=== PATIENT | female | born 1970 | race Caucasian/White ===

== ENCOUNTER 2018-11-06 07:35 | Day surgery (SDC) | payer BC ==
[~2018-11-06] VITALS: Ht 167.6 cm; Wt 65.8 kg
[~2018-11-06 07:35] MED LIST: CALTCHW4 PO; CRAN400C PO; LIDOCAINE 2% INJ 100 MG/5 ML SDV (FOR ANES.) As Ordered ONE; MULT1TAB10 PO
[2018-11-06] MEDS ORDERED: PROPOFOL 200 MG/20 ML VIAL As Ordered ONE ×2 (07:45→09:01)
[2018-11-06] MEDS ORDERED: NS 1,000 ML IV ONE (08:45)
--- NOTE | 2018-11-06 09:22 | ROOR ---
Patient Name: Emely Glasgow Procedure Date: 11/06/2018 8:52 AM Date of : 1970 Age: 48 Room: [facility] Gender: Female Note Status: Finalized Procedure: Colonoscopy Indications: Screening for colorectal malignant neoplasm Providers: Matty CHAVEZ MD Referring MD: Fabienne MIRANDA MD Requesting Provider: Medicines: Monitored Anesthesia Care Complications: No immediate complications. Procedure: Pre-Anesthesia Assessment: - The heart rate, respiratory rate, oxygen saturations, blood pressure, adequacy of pulmonary ventilation, and response to care were monitored throughout the procedure. The Colonoscope was introduced through the anus and advanced to the terminal ileum, with identification of the appendiceal orifice and IC valve. The colonoscopy was performed without difficulty. The patient tolerated the procedure well. The quality of the bowel preparation was adequate to identify polyps. Findings: The perianal and digital rectal examinations were normal. Three carpet-like polyps were found in the hepatic flexure, ascending colon and cecum. The polyps were 6 to 8 mm in size. These polyps were removed with a piecemeal technique using a cold snare. Resection and retrieval were complete. The exam was otherwise without abnormality on direct and retroflexion views. Impression: - Three 6 to 8 mm polyps at the hepatic flexure, in the ascending colon and in the cecum, removed piecemeal using a cold snare. Resected and retrieved. - The examination was otherwise normal on direct and retroflexion views. Recommendation: - Repeat colonoscopy in 3 years for surveillance. - Telephone endoscopist for pathology results in 2 weeks. Matty Chavez MD Matty CHAVEZ MD 11/06/2018 9:22:20 AM This report has been signed electronically. Number of Addenda: 0 Note Initiated On: 11/06/2018 8:52 AM Estimated Blood Loss: Estimated blood loss: none.
[2018-11-06 09:40] VITALS: BP 94/53
== END 2018-11-06 09:59 | disposition home or self-care (01) ==
LOC: M OPP 07:35
PROVIDERS: ATTEND Internal Medicine Gastroenterology
DX: Z12.11 Encounter for screening for malignant neoplasm of colon (principal); K63.5 Polyp of colon; R01.1 Cardiac murmur, unspecified

== ENCOUNTER 2018-12-10 07:23 | Day surgery (SDC) | payer BC ==
[~2018-12-10] VITALS: Ht 167.6 cm; Wt 65.8 kg
[~2018-12-10 07:23] MED LIST changes: -LIDOCAINE 2% INJ 100 MG/5 ML SDV (FOR ANES.) As Ordered ONE; +LR 1,000 ML IV SCH
[2018-12-10] MEDS ORDERED: ONDANSETRON 4MG/2ML VIAL (J2405) As Ordered ONE (08:05)
[2018-12-10] MEDS ORDERED: LIDOCAINE 2% INJ 100 MG/5 ML SDV (FOR ANES.) As Ordered ONE (08:05)
[2018-12-10] MEDS ORDERED: MIDAZOLAM INJ 2 MG/2 ML VIAL (J2250) As Ordered ONE (08:05)
[2018-12-10] MEDS ORDERED: dexameTHASONE 4 MG/ML 1ML VIAL (J1100) As Ordered ONE (08:05)
[2018-12-10] MEDS ORDERED: PROPOFOL 200 MG/20 ML VIAL As Ordered ONE (08:05)
[2018-12-10] MEDS ORDERED: fentaNYL 100 MCG/2 ML INJECTION (J3010) As Ordered ONE (08:05)
[2018-12-10] MEDS ORDERED: ePHEDrine SULFATE 25 MG/5 ML(5MG/ML) SYRINGE As Ordered ONE ×2 (09:07→09:31)
[2018-12-10] MEDS ORDERED: fentaNYL 100 MCG/2 ML INJECTION (J3010) IV PRN (10:15)
[2018-12-10] MEDS ORDERED: PERCOCET 5MG/325MG TAB PO PRN (10:15)
[2018-12-10] MEDS ORDERED: MEPERIDINE INJ 25 MG/ML VIAL (J2175) IV PRN (10:15)
[2018-12-10] MEDS ORDERED: METOCLOPRAMIDE INJ 10MG/2ML VIAL (J2765) IV PRN (10:15)
[2018-12-10] MEDS ORDERED: LR 1,000 ML IV SCH ×2 (10:15)
[2018-12-10] MEDS ORDERED: IBUPROFEN 600 MG TAB PO PRN (10:15)
[2018-12-10] MEDS ORDERED: ONDANSETRON 4MG/2ML VIAL (J2405) IV PRN (10:15)
[2018-12-10] MEDS ORDERED: METOCLOPRAMIDE INJ 10MG/2ML VIAL (J2765) As Ordered ONE (12:24)
[2018-12-10 12:35] VITALS: BP 111/59
--- NOTE | 2018-12-10 19:24 | RO ---
DATE OF PROCEDURE: 12/10/2018 PREOPERATIVE DIAGNOSES: Irregular cycles, cervical polyp, abnormal ultrasound. POSTOPERATIVE DIAGNOSES: Nabothian cyst ruptured with our work. The endometrial cavity was actually obliterated by her ablation. I think that is why her sono looked interesting. OPERATIVE PROCEDURE: Fractional dilation and curettage (D and C) hysteroscopy. SURGEON: Gloria Palencia MD CLINICAL RESEARCH ANALYST: ANESTHESIA: Laryngeal mask airway (LMA). BRIEF DESCRIPTION OF PROCEDURE AND FINDINGS: Emely was brought to the operating room where sufficient LMA anesthesia was given and she was prepped and she was prepped, draped and positioned in the usual sterile fashion. The bladder was emptied and the cervix was grasped with a single tooth tenaculum. The cervix would accessible from below should this be needed in the future. Endocervical curettage was aggressively carried out. She has a nabothian cyst there that was ruptured, but no other significant lesion, a sort of little bit patulous cervix, but then we tried to sound her and I could not pass the sound consistent with her previous endometrial ablation. So we used the smallest dilator to try to find the tract and then carefully dilated her up and we placed the hysteroscope and we could see that we had perforated. As we backed the scope into the cavity, really the cavity was just obliterated by the endometrial ablation. I could not find any other tract or other direction and really it was just all scar tissue by and large. We did wilver off the end of the curettes so that we knew we would stay inside the cavity and did curettage, but there was not really anything to resect by the MyoSure, so we did not use that. There was certainly no evidence of significant bleeding or any need to repair the perforatoin. In fact, those aspects of the tissue seen in the peritoneal cavity were normal. After both curettages the procedure was ended. ESTIMATED BLOOD LOSS: Maybe 5 mL FLUID REPLACEMENT: Crystalloid. COMPLICATIONS: None. CONDITION AND DISPOSITION: Emely tolerated the procedure well and was recovering in the recovery room in good condition.
== END 2018-12-10 13:39 | disposition home or self-care (01) ==
LOC: M SDC 07:23
PROVIDERS: ATTEND Obstetrics & Gynecology
DX: N92.6 Irregular menstruation, unspecified (principal); N84.0 Polyp of corpus uteri; N88.8 Other specified noninflammatory disorders of cervix uteri; N99.71 Accidental puncture and laceration of a genitourinary system organ or structure during a genitourinary system procedure
CPT/HCPCS: 58558; 88304; 88305; J1100; J2250; J2405; J3010

== ENCOUNTER → 2021-06-04 | Outpatient (CLI) | payer BC ==
[~2021-06-04] MED LIST changes: -LR 1,000 ML IV SCH
--- NOTE | 2021-06-04 08:56 | REP ---
INDICATION: SCREENING MAMMO. COMPARISON: Multiple TECHNIQUE: Digital screening mammography was carried out bilaterally in the CC and MLO projections using both 2D and 3D modalities and compared to the prior exams. By history, the patient has no complaints of a palpable breast abnormality or other significant breast complaints. FINDINGS: The breasts are unchanged in size and shape. Once again, scattered dense heterogenous fibroglandular elements are seen bilaterally to such a degree that the sensitivity of the mammogram in detecting cancer is decreased. There are no marty soft tissue densities or spiculated masses. There is no internal architectural distortion. In the upper outer quadrant of the left breast there is a grouping of calcifications which have increased in number and variability in size, shape, radiographic density may have developed. No other suspicious features are seen in either breast. The Volpara volumetric breast density pattern is C. IMPRESSION: BIRADS/ACR category 0 mammogram. Calcifications in the left breast upper outer quadrant for which diagnostic digital magnified spot compression views are recommended in the cc and true lateral projections. This patient's Tyrer-Cuzick lifetime breast cancer risk assessment score is 16%. This mammogram was interpreted with the aid of an FDA-approved computer-aided detection system. The patient states she had a clinical breast exam in July 2020. The patient letter being requested is M0. RECOMMENDATION: As above <Electronically signed by Gaurang Preciado > 06/04/21 [id number]
== END ==
LOC: M WHC 07:51
PROVIDERS: ATTEND Internal Medicine
DX: Z12.31 Encounter for screening mammogram for malignant neoplasm of breast (principal); N63.21 Unspecified lump in the left breast, upper outer quadrant

== ENCOUNTER → 2021-06-29 | Outpatient (CLI) | payer BC ==
--- NOTE | 2021-06-29 11:18 | REP ---
INDICATION: LEFT BREAST ADD VIEWS. COMPARISON: Multiple TECHNIQUE: Diagnostic digital magnified spot compression views of the left breast were obtained in the CC, MLO, and true lateral projections and compared to the prior exams. FINDINGS: The calcifications seen near the 12 o'clock position on the prior screening examination of 06/04/2021 are better imaged using the diagnostic technique of today. These calcifications vary somewhat in size, shape, and radiographic density. IMPRESSION: BIRADS/ACR category 4 mammogram. Left breast calcifications as described above for which biopsy is recommended. The patient letter being requested is M4. RECOMMENDATION: As above <Electronically signed by Gaurang Preciado > 06/29/21 [id number]
== END ==
LOC: M WHC 10:26
PROVIDERS: ATTEND Internal Medicine
DX: R92.2 Inconclusive mammogram (principal); N63.23 Unspecified lump in the left breast, lower outer quadrant

== ENCOUNTER → 2021-07-17 | Outpatient (CLI) | payer BC ==
[2021-07-17 15:52] VITALS: BP 112/70
--- NOTE | 2021-07-17 17:43 | REP ---
INDICATION: INCONCLUSIVE MAMMO LEFT , STEREOTACTIC BX POST CLIP MAMMO. COMPARISON: None. TECHNIQUE: This procedure is performed by Mere Dorantes [facility], under the direct supervision of Dr. Montanez. The risks and benefits of the procedure were explained to the patient and informed consent was obtained both verbally and written. Directly prior to the start of the procedure, a formal timeout was done in the procedure room. The cranial caudal superior to inferior approach was utilized on the prone table. The left breast microcalcifications were localized using mammographic guidance. The skin was prepped and draped in a sterile fashion. Five ml of buffered lidocaine was used as a local anesthetic. FINDINGS: A 10 gauge mammotome vacuum assisted biopsy device was inserted and advanced into the left breast lesion and 6 core biopsy samples were obtained. A shape 3 marker clip was placed at the biopsy site. The patient tolerated the procedure well and there were no immediate complications. After the appropriate amount of monitored convalescence the patient was discharged from the department. IMPRESSION: Stereotactic left breast biopsy with micro clip placement. <Electronically signed by Mere Dorantes > 07/17/21 1646 <Electronically signed by Enrrique Montanez > 07/17/21 [id number]
--- NOTE | 2021-07-17 17:44 | REP ---
INDICATION: INCONCLUSIVE MAMMO LEFT , STEREOTACTIC BX POST CLIP MAMMO. COMPARISON: Comparison mammography June 29, 2021. TECHNIQUE: Single-view specimen radiograph left breast specimen. FINDINGS: Specimen radiography demonstrates microcalcifications from the target grouping in 5 of the 6 removed specimens. IMPRESSION: Specimen radiography demonstrates microcalcifications from the target grouping. <Electronically signed by Enrrique Montanez > 07/17/21 [id number]
--- NOTE | 2021-07-18 07:47 | REP ---
INDICATION: INCONCLUSIVE MAMMO LEFT , STEREOTACTIC BX POST CLIP MAMMO. Marker clip placement views. COMPARISON: Comparison mammography of the left breast June 29, 2021. TECHNIQUE: Craniocaudal and mediolateral views of the left breast are obtained. FINDINGS: Craniocaudal and mediolateral views of the left breast demonstrate the needle biopsy marker clip in good position where prior mammography showed microcalcifications. Most of the microcalcifications appear to have been removed. IMPRESSION: Marker clip in good position in the left breast. <Electronically signed by Enrrique Montanez > 07/17/21 [id number]
== END ==
LOC: M WHCPRO 06:45
PROVIDERS: ATTEND Internal Medicine
DX: D05.12 Intraductal carcinoma in situ of left breast (principal)

== ENCOUNTER → 2021-07-30 | Outpatient (CLI) | payer BC | LOC: M PLALAB 08:07 | PROVIDERS: ATTEND Surgery | DX: Z13.79 Encounter for other screening for genetic and chromosomal anomalies (principal); Z85.3 Personal history of malignant neoplasm of breast; Z86.010 Personal history of colon polyps ==

== ENCOUNTER → 2021-08-03 | Outpatient (CLI) | payer BC ==
[~2021-08-03] MED LIST changes: +PROHANCE 279.3MG/ML 15ML VIAL As Ordered ONE
--- NOTE | 2021-08-03 16:58 | REP ---
INDICATION: DUCTAL CARCINOMA INSITU LT BREAST. COMPARISON: Mammogram 06/04/2021, 06/29/2021 TECHNIQUE: Three Dee MRI imaging was performed with a dedicated breast coil. Axial, coronal, and sagittal T1 and T2 weighted scans were obtained with and without fat saturation in the usual fashion. The study includes dynamically acquired post gadolinium-enhanced imaging with image subtraction. Maximum intensity projection and multi planar reformation imaging is included as well. This study is interpreted with the aid of ReferralMDD, an FDA approved computer aided detection (CAD) software program, on a dedicated breast MRI workstation. The gadolinium enhancement dose is 13 mL of intravenous ProHance. FINDINGS: There is an extreme pattern of parenchymal tissue bilaterally. There is no axillary adenopathy bilaterally. There are few subcentimeter cysts scattered in the left breast. A recently placed biopsy clip is visualized in the upper outer quadrant of the left breast, microcalcifications were stereotactically biopsied at this location which showed ductal carcinoma in situ. There is mild background parenchymal enhancement bilaterally. There is no suspicious enhancing mass or morphologic abnormality.. IMPRESSION: BI-RADS category 6, known left breast cancer. The biopsy clip recently placed is visualized in the upper outer quadrant of the left breast. Microcalcifications were biopsied which showed ductal carcinoma in site 2. There is no suspicious enhancing mass or morphologic abnormality bilaterally. <Electronically signed by Michael West > 08/03/21 [id number]
== END ==
LOC: M RAD 14:24
PROVIDERS: ATTEND Surgery
DX: D05.12 Intraductal carcinoma in situ of left breast (principal)
CPT/HCPCS: A9576; C8908

== ENCOUNTER → 2021-08-22 | Outpatient (CLI) | payer BC ==
[~2021-08-22] MED LIST changes: +MULTCHW14 PO; -PROHANCE 279.3MG/ML 15ML VIAL As Ordered ONE; +VIAC1CHW PO
--- NOTE | 2021-08-22 11:23 | REP ---
INDICATION: ENCOUNTER FOR OTHER PREPROCEDURAL EXAMINATION. COMPARISON: None. TECHNIQUE: PA and lateral FINDINGS: The superior mediastinal structures are midline. The cardiac silhouette is unremarkable in size, shape, and position. The diaphragmatic surfaces of the lungs are regular, and the costophrenic angles are clear. The pulmonary ann are clear. The imaged osseous structures are intact. IMPRESSION: There is no acute cardiopulmonary disease. <Electronically signed by Gaurang Preciado > 08/22/21 1115
== END ==
LOC: M PLAIMG 08:09
PROVIDERS: ATTEND Surgery
DX: Z01.818 Encounter for other preprocedural examination (principal)

== ENCOUNTER → 2021-08-23 | Outpatient (CLI) | payer BC | LOC: M LABSMTC 11:31 | PROVIDERS: ATTEND Surgery | DX: Z01.812 Encounter for preprocedural laboratory examination (principal); Z20.822 Contact with and (suspected) exposure to COVID-19 ==

== ENCOUNTER 2021-08-28 10:39 | Day surgery (SDC) | payer BC ==
[~2021-08-28] VITALS: Ht 167.6 cm; Wt 65.2 kg
[~2021-08-28 10:39] MED LIST changes: +HEPARIN SOD (PORCINE) 5000UNITS/ML 1ML VIAL/SYRINGE SQ ONE; +LIDOCAINE 1% MDV 20ML VIAL SQ PRN; +LR 1,000 ML IV ONE; +ceFAZolin SOD 2 GM in IV 1 EA IV ONE
--- OUTSIDE RECORDS SUMMARY | 2021-08-28 10:42 | CCD | Continuity of Care Document ---
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 Onset: 1 Elevated blood-pressure reading without diagnosis of h ypertension Fabienne Ball M.D. Onset: 07/29/2011 Social History Type Date Description Comments Sex Unknown ETOH Use Rarely consumes wine Tobacco Use Start: Unknown Patient has never smoked Allergies and adverse reactions Description No Known Drug Allergies Medications Active Medications SIG Qnty Indications Ordering Provide r Date Multivitamins Tablets 1 po q d Fabienne Ball M.D. 07/31/2011 Calcium 600 + D [id number] Tab lets 1 po qd Fabienne Ball M.D. 07/31/20 11 Cranberry 500mg Capsules 1 by mouth every day Fabienne Ball M.D. 07/31/20 11 Medications Administered in Office Medication SIG Qnty Indications Ordering Provider Date Covid-19 vaccine, Unspecified Inj ection Unknown 02/08/2021 Covid-19 vaccine, Unspecified Inj ection Unknown 01/11/2021 Immunizations CPT Code Status Date Vaccine Lot # U-Flu Given 08/11/2019 Influenza,Unspecified U-Flu Given 07/20/2018 Influenza,Unspecified [id number] Given 08/14/2017 Influenza Vaccin e Quadrivalent Preser/Antibiotic Free Im Use [id number] Refused 08/05/2012 Fluvirin Virus Vaccine Vital Signs Date Vital Result Comment 08/14/2021 2:28pm BP Systolic 130 mmHg BP Diastolic 76 mmHg Heart Rate 58 /min Height 65.75 inches 5'5.75" Weight 148.00 lb BMI (Body Mass Index) 24.1 kg/m2 07/12/2021 10:03am BP Systolic 122 mmHg RT Arm BP Diastolic 70 mmHg RT Arm Heart Rate 69 /min Height 65.75 inches 5'5.75" Weight 146.38 lb O2 Saturation Level with Exercise 98 % RM Air BMI (Body Mass Index) 23.8 kg/m2 Results Test Acquired Date Facility Test Result H/L Range Note Coronavirus 2019 Nasopharygeal 08/23/2021 [facility] [address] [place] [address] [phone] Coronavirus 2019 Nasopharygeal ASSAY INFORMATIO <SEE N OTE> 1 Complete Blood Count 08/14/2021 [facility] vivienne stephenson [employer] Manager: [place] [address] [phone] WBC 6.1 x10*3/UL 4.1 - 10.9 RBC 4.28 x10*6/UL 4.20 - 6.30 Hemoglobin 12.7 g/dL 12.0 - 18.0 Hematocrit 37.3 % 37.0 - 51.0 MCV 87.1 fL 80.0 - 97.0 MCH 29.7 pg 26.0 - 32.0 MCHC 34.0 g/dL 31.0 - 38.0 RDW 12.2 % 11.6 - 13.7 PLT 209 x10*3/UL 140 - 440 MPV 8.7 FL 7.8 - 11.0 Lymph % 26.3 % 10.0 - 58.5 Mid % 6.8 % 1.7 - 9.3 Neut % 66.9 % 37.0 - 92.0 Lymph # 1.6 x10*3/UL 0.6 - 4.1 Mid # 0.4 x10*3/UL 0.1 - 0.6 Neut # 4.1 x10*3/UL 2.0 - 7.8 Comprehensive Chem Profile 08/14/2021 [place] vivienne Reece [employer]: [place] [address] [phone] Glucose 100 mg/dL High 74 - 99 2 BUN 19 mg/dL High 7 - 18 Creatinine 0.9 mg/dL 0.6 - 1.3 Sodium 141 mEq/L 136 - 145 Potassium 5.3 mEq/L High 3.5 - 5.1 3 Chloride 104 mEq/L 98 - 107 Carbon Dioxide 34 mEq/L High 21 - 32 Calcium 10.1 mg/dL 8.5 - 10.1 Alk. Phosphatase 82 mg/dL 46 - 116 Total Bilirubin 0.3 mg/dL 0.2 - 1.0 Ast (Sgot) 21 U/L 15 - 37 Alt (SGPT) 37 U/L 12 - 78 Albumin 4.1 g/dL 3.4 - 5.0 Total Protein 7.5 g/dL 6.4 - 8.2 A/G Ratio 1.21 CALC 1.00 - 1.90 GFR >= 60 mL/min >60 GFR >= 60 mL/min >60 4 Laboratory test finding 07/17/[address] [id number] [phone] Pathology Request For Service (SEE NOTE) 5 Complete Blood Count 07/12/2021 [facility] [employer]: Dr Khadar Hopkins [place], [place] [id number] [phone] WBC 5.7 x10*3/UL 4.1 - 10.9 RBC 4.26 x10*6/UL 4.20 - 6.30 Hemoglobin 12.7 g/dL 12.0 - 18.0 Hematocrit 37.2 % 37.0 - 51.0 MCV 87.3 fL 80.0 - 97.0 MCH 29.7 pg 26.0 - 32.0 MCHC 34.0 g/dL 31.0 - 38.0 RDW 12.2 % 11.6 - 13.7 PLT 223 x10*3/UL 140 - 440 MPV 8.6 FL 7.8 - 11.0 Lymph % 22.6 % 10.0 - 58.5 Mid % 6.9 % 1.7 - 9.3 Neut % 70.5 % 37.0 - 92.0 Lymph # 1.2 x10*3/UL 0.6 - 4.1 Mid # 0.5 x10*3/UL 0.1 - 0.6 Neut # 4.0 x10*3/UL 2.0 - 7.8 Basic Metabolic Panel 07/12/2021 [facility] [employer]: [place] [address] [phone] Glucose 78 mg/dL 74 - 99 6 BUN 11 mg/dL 7 - 18 Creatinine 0.7 mg/dL 0.6 - 1.3 Sodium 142 mEq/L 136 - 145 Potassium 4.1 mEq/L 3.5 - 5.1 Chloride 104 mEq/L 98 - 107 Carbon Dioxide 32 mEq/L 21 - 32 Calcium 9.6 mg/dL 8.5 - 10.1 GFR >= 60 mL/min >60 GFR >= 60 mL/min >60 7 Laboratory test finding 07/12/2021 [facility] [employer] Manager: [place] [address] [phone] Thyroid Stimulating Hormone 1.89 uIU/mL 0.3 6 - 3.74 1 ASSAY INFORMATION: Real Time RT-PCR NOTE: The COVID-19 assay has been cleared by the U.S. Food and Drug Administration under the Emergency Use Authorization (EUA). [facility] and [facility] are designated as high complexity laboratories by the Clinical Laboratory Improvement Amendments of 1988(CLIA) and are qualified to perform this test. Not Detected 2 100-125 mg/dL PRE-DIABET ES/FASTING >126 mg/dL DIABETES/FASTING 3 NOTE: RESULT VERIFIED. NO VISIBLE HEMOLYSIS. 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 Microcalcifications associated with both benign breast tissue and carcinoma in situ. Estrogen receptors: Positive (diffuse and strong in 100% of tumor cells). Progesterone receptors: Positive (diffuse and strong in 100% of tumor cells). 07/20/2021 - 0841 CLINICAL DIAGNOSIS Left breast microcalcifications 07/18/2021 - 1438 GROSS DIAGNOSIS Received in formalin labeled "left breast microcalcifications" and consists of a core fragment of tissue measuring from 0.5 to 1 cm. All in one. 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 Procedures Date Code Description Status 08/14/2021 03989 Office/Outpatient Established Lo w MDM 20-29 Min Completed 07/12/2021 27443 Office/Outpatient Established Mo d MDM 30-39 Min Completed 07/12/2021 87305 EKG/Interpretation & Report Comp leted 06/29/2021 [id number] Mammogram Completed 06/04/2021 [id number] Mammogram Completed 06/01/2020 [id number] Mammogram Completed 05/20/2019 [id number] Mammogram Completed 11/06/2018 [id number] Colonoscopy Completed 05/28/2018 [id number] Mammogram Completed 05/19/2017 [id number] Mammogram Completed 05/03/2016 [id number] Mammogram Completed 05/02/2015 [id number] Mammogram Completed 04/29/2014 [id number] Mammogram Completed 04/28/2013 [id number] Mammogram Completed 04/27/2012 [id number] Mammogram Completed 02/16/2010 [id number] Mammogram Completed Medical Devices Description No Information Available Encounters Type Date Location Provider Dx Diagnosis Office Visit 08/14/2021 2:30p [facility] Z01.810 Encounter for preprocedural cardiovascular examination D05.12 Intraductal carcinoma in sit u of left breast R03.0 Elevated blood-pressure read ing, w/o diagnosis of htn N30.20 Other chronic cystitis witho ut hematuria Z83.518 Family history of other spec ified eye disorder M54.50 Low back pain, unspecified L23.1 Allergic contact dermatitis due to adhesives N95.8 Other specified menopausal a nd perimenopausal disorders Office Visit 07/12/2021 10:00a [facility] Rowdy Ball M.D. Z01.810 Encounter for preprocedural cardiovascular examination R92.2 Inconclusive mammogram R03.0 Elevated blood-pressure read ing, w/o diagnosis of htn N95.8 Other specified menopausal a nd perimenopausal disorders N30.20 Other chronic cystitis witho ut hematuria R51.9 Headache, unspecified Z86.010 Personal history of colonic polyps Z83.518 Family history of other spec ified eye disorder M54.5 Low back pain Assessments Date Code Description Provider 08/14/2021 Z01.810 Encounter for preprocedural card iovascular examination Fabienne Ball M.D. 08/14/2021 D05.12 Intraductal carcinoma in situ of left breast Fabienne Ball M.D. 08/14/2021 R03.0 Elevated blood-press ure reading, without diagnosis of hypertension Fabienne Ball M.D. 08/14/2021 N30.20 Other chronic cystitis without h ematuria Fabienne Ball M.D. 08/14/2021 Z83.518 Family history of other specifie d eye disorder Fabienne Ball M.D. 08/14/2021 M54.50 Low back pain, unspecified Fabienne Ball M.D. 08/14/2021 L23.1 Allergic contact dermatitis due to adhesives Fabienne Ball M.D. 08/14/2021 N95.8 Other specified menopausal and p erimenopausal disorders aFbienne Ball M.D. 07/12/2021 Z01.810 Encounter for preprocedural card iovascular examination Fabienne Ball M.D. 07/12/2021 R92.2 Inconclusive mammogram Fabienne Ball M.D. 07/12/2021 R03.0 Elevated blood-press ure reading, without diagnosis of hypertension Fabienne Ball M.D. 07/12/2021 N95.8 Other specified menopausal and p erimenopausal disorders Fabienne Ball M.D. 07/12/2021 N30.20 Other chronic cystitis without h ematuria Fabienne Ball M.D. 07/12/2021 R51.9 Headache, unspecified Fabienne melvin M.D. 07/12/2021 Z86.010 Personal history of colonic poly ps Fabienne Ball M.D. 07/12/2021 Z83.518 Family history of other specifie d eye disorder Fabienne Ball M.D. 07/12/2021 M54.5 Low back pain Fabienne wagner M.D. Plan of Treatment Future Appointment(s):* 12/10/2021 8:15 am - Fabienne Ball M.D. at [facility] * 07/17/2022 8:00 am - Fabienne Ball M.D. at [facility] 07/12/2021 - Fabienne Ball M.D.* Z01.810 Encounter for preprocedural cardiovascular examination * R92.2 Inconclusive mammogram * R03.0 Elevated blood-pressure reading, without diagnosis of hypertension * N95.8 Other specified menopausal and perimenopausal disorders * N30.20 Other chronic cystitis without hematuria * R51.9 Headache, unspecified * Z86.010 Personal history of colonic polyps * Z83.518 Family history of other specified eye disorder * M54.5 Low back pain * All * Comments:* 9. Health Maintenance. She has had the COVID vaccine she will get the flu shot at work. She will consider the Shingrix but has not yet had it. Mammogram as above. Being referred back for colonoscopy, diet, exercise encouraged. She had her TDAP 2014. Functional Status Description No Information Available Mental Status Description No Information Available Referrals Refer to Reason for Referral Status Appt Date Trinity Hoyos, DO URGENT CONSULT FOR LT BREAST CANCER PLEASE LET OFFICE KNOW WHEN APPT IS MADE, THANK YOU Closed 07/26/2021 [facility] [address] [place] [address] [phone] Matty Chavez MD CONSULT FOR SCREENING COLONOSCOPY Patient N otified 08/28/2021 [facility] Medical Practice [address] [address] [phone]
--- OUTSIDE RECORDS SUMMARY | 2021-08-28 10:42 | CCD ---
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 [id number] ALLERGIES No Known Allergies ENCOUNTERS from 1970 to 2021-08-14 Encounter Location Date Provider Diagnosis [facility] [address] [place] [address] [place] [address] Jul, Trinity Hoyos IMMUNIZATIONS No Information SOCIAL HISTORY Tobacco Use: Social History Observation Description Date Details (start date - stop date) Never Smoker Sex Assigned At : Social History Observation Description Sex Assigned At Unknown Tobacco Use: Question Answer Notes Are you a: never smoker REASON FOR REFERRAL No Information VITAL SIGNS No information MEDICATIONS Medication SIG (Take, Route, Frequency, Duration) Notes Start Da te End Date Status Caltrate 600 650 mg Active Cranberry Plus Vitamin C 4200-20-3 MG-UNIT as directed Orally Active Multivitamin - 1 tablet Orally Once a day Active Cranberry - as directed Not-Taking PROCEDURES No Information RESULTS No Results REASON FOR VISIT preop clearance MEDICAL (GENERAL) HISTORY Type Description Date Medical History heart murmur Medical History UTI's Medical History hx of fainting with needles/sight of her own blood Medical History left breast DCIS Surgical History breast bx Surgical History colonoscopy Surgical History tubal ligation Surgical History wisdom teeth Surgical History D&C Goals Section No Information Health Concerns No Information MEDICAL EQUIPMENT No Information MENTAL STATUS No Information FUNCTIONAL STATUS No Information ASSESSMENTS No Information PLAN OF TREATMENT Next Appt Details Provider Name:Trinity Hoyos, 09-09-09 12:45:00 AM, [address] [place] [address], , [place], [address], Provider Name:Trinity Hoyos, 09-09-15 07:30:00 AM, [address] [place] [address], , [place], [address], Insurance Providers Payer Name Payer Address Payer Phone Insured Name Patient Relati onship to Insured Coverage Start Date Coverage End Date [facility] [address] [address] [facility] [id number] ZARI SANDS
--- OUTSIDE RECORDS SUMMARY | 2021-08-28 10:42 | CCD ---
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 [id number] ALLERGIES No Known Allergies ENCOUNTERS from 1968 to 2021-08-18 Encounter Location Date Provider Diagnosis [address] [phone] [id number] [place] [address] Jul, Trinity Hoyos IMMUNIZATIONS No Information SOCIAL [...] Information RESULTS No Results REASON FOR VISIT MRI results/ surgical planning MEDICAL (GENERAL) HISTORY Type Description Date Medical [...] Details Provider Name:Trinity Hoyos, 09-09-09 12:45:00 AM, [address] [place] [address], , [place], [address], Provider Name:Trinity Hoyos, 09-09-15 12:00:00 AM, [address] [place] [address], , [place], [place], [facility], Provider Name:Trinity Hoyos, 09-10-06 10:00:00 AM, [address] [place] [address], , [place], [place], [facility], Insurance Providers Payer Name Payer Address Payer Phone Insured Name Patient Relati onship to Insured Coverage Start Date Coverage End Date [facility] FED[facility]AL [address] [address] [facility] [id number] ZARI GLASGOW
--- OUTSIDE RECORDS SUMMARY | 2021-08-28 10:43 | CCD | Continuity of Care Document ---
Author Author Emely Ball M.D. 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 07/31/2011 Calcium 600 + D [id number] Tab lets 1 po qd Fabienne Ball [...] Given 08/11/2019 Influenza,Unspecified U-Flu Given 07/20/2018 Influenza,Unspecified 24892 Given 08/14/2017 Influenza Vaccin e Quadrivalent Preser/Antibiotic Free Im Use [id number] Refused 08/05/2012 Fluvirin Virus Vaccine Vital [...] Date Facility Test Result H/L Range Note Laboratory test finding 07/17/2021 [facility] [address] [place] [address] [phone] Pathology Request For Service (SEE NOTE) 1 Complete Blood Count 07/12/2021 [facility] Landscaping Specialist: [place] [address] [phone] WBC 5.7 x10*3/UL 4.1 - 10.9 RBC [...] 2.0 - 7.8 Basic Metabolic Panel 07/12/2021 [facility] Landscaping Specialist: [place] [address] [phone] Glucose 78 mg/dL 74 - 99 2 BUN 11 mg/dL 7 - 18 Creatinine 0.7 mg/dL 0.6 - 1.3 Sodium 142 mEq/L 136 - 145 Potassium 4.1 mEq/L 3.5 - 5.1 Chloride 104 mEq/L 98 - 107 Carbon Dioxide 32 mEq/L 21 - 32 Calcium 9.6 mg/dL 8.5 - 10.1 GFR >= 60 mL/min >60 GFR >= 60 mL/min >60 3 Laboratory test finding 07/12/2021 [facility] Landscaping Specialist: Dr Khadar Hopkins [place], [place] [id number] [phone] Thyroid Stimulating Hormone 1.89 uIU/mL 0.3 6 - 3.74 1 FINAL DIAGNOSIS Left breast, biopsy: Ductal carcinoma in situ (cribriform type), grade 1 (of 3). Microcalcifications associated with both benign breast tissue and carcinoma in situ. Estrogen receptors: Positive (diffuse and strong in 100% of tumor cells). Progesterone receptors: Positive (diffuse and strong in 100% of tumor cells). 07/20/2021 - 0841 CLINICAL DIAGNOSIS Left breast microcalcifications 07/18/20211437 GROSS DIAGNOSIS Received in formalin labeled "left breast microcalcifications" and consists of a core fragment of tissue measuring from 0.5 to 1 cm. All in one. -OA 07/18/2021 - 1437 Signed CYNTHIA SEGAL MD 07/20/2021 0842 2 100-125 mg/dL PRE-DIABET ES/FASTING >126 mg/dL DIABETES/FASTING 3 CHRONIC KIDNEY DISEASE STAGI NG PER NKF STAGE I & II GFR >= 60 NORMAL TO MILDLY DECREASED STAGE III GFR 30-59 MODERATELY DECREASED STAGE IV GFR 15-29 SEVERELY DECREASED STAGE V GFR <15 VERY LITTLE GFR LEFT ESRD GFR <15 ON BABBITTER Procedures Date Code Description Status 07/12/2021 12946 Office/Outpatient Established Mo d MDM 30-39 Min Completed 07/12/2021 01903 EKG/Interpretation & Report Comp leted 06/29/2021 [id number] Mammogram Completed 06/04/2021 [id number] Mammogram Completed 06/01/2020 [id number] Mammogram Completed 05/20/2019 [id number] Mammogram Completed 11/06/2018 [id number] Colonoscopy Completed 05/28/2018 [id number] Mammogram Completed 05/19/2017 [id number] Mammogram Completed 05/03/2016 [id number] Mammogram Completed 05/02/2015 [id number] Mammogram Completed 04/29/2014 [id number] Mammogram Completed 04/28/2013 [id number] Mammogram Completed 04/27/2012 [id number] Mammogram Completed 02/16/2010 [id number] Mammogram Completed Medical Devices Description No Information Available Encounters Type Date Location Provider Dx Diagnosis Office Visit 07/12/2021 10:00a [facility] Z01.810 Encounter for [...] back pain Assessments Date Code Description Provider 07/12/2021 Z01.810 Encounter for preprocedural card iovascular [...] wagner M.D. Plan of Treatment Future Appointment(s):* 07/17/2022 8:00 am - Fabienne Ball M.D. at [facility] 07/12/2021 - Fabienne Ball M.D.* [...] Closed 07/26/2021 [facility] [address] [place] [address] [phone] Matty Chavez MD CONSULT FOR SCREENING COLONOSCOPY Patient N otified 08/28/2021 [facility] [address] [facility] [address] [facility] [address] [phone]
--- OUTSIDE RECORDS SUMMARY | 2021-08-28 10:43 | CCD ---
Author Author [facility] Organization [facility] Address Unknown Phone Unavailable Care Team Providers Care Chemical Project Engineer Name Role Phone Kary SABILLON Unavailable Unavailable LETTIERE, Kary CAMPUZANO Unavailable Unavailable LETTIERE, Kary CAMPUZANO Unavailable Unavailable LETTIERE, Kary CAMPUZANO Unavailable Unavailable LETTIERE, Kary MEZA PA Unavailable Unavailable LETTIERE, Kary MEZA PA Unavailable Unavailable LETTIERE, Kary MEZA PA Unavailable Unavailable LETTIERE, Kary MEZA PA Unavailable Unavailable LETTIERE, Kary MEZA PA Unavailable Unavailable LETTIERE, Kary MEZA PA Unavailable Unavailable LETTIERE, Kary MEZA PA Unavailable Unavailable LETTIERE, Kary MEZA PA Unavailable Unavailable LETTIERE, Kary MEZA PA Unavailable Unavailable LETTIERE, Kary MEZA PA Unavailable Unavailable LETTIERE, Kary MEZA PA Unavailable Unavailable LETTIERE, Kary MEZA PA Unavailable Unavailable LETTIERE, Kary MEZA PA Unavailable Unavailable LETTIERE, Kary MEZA PA Unavailable Unavailable LETTIERE, Kary MEZA PA Unavailable Unavailable LETTIERE, Kary MEZA PA Unavailable Unavailable LETTIERE, Kary MEZA PA Unavailable Unavailable LETTIERE, Kary MEZA PA Unavailable Unavailable LETTIERE, Kary MEZA PA Unavailable Unavailable LETTIERE, Kary MEZA PA Unavailable Unavailable LETTIERE, Kary MEZA PA Unavailable Unavailable LETTIERE, Kary MEZA PA Unavailable Unavailable LETTIERE, Kary MEZA PA Unavailable Unavailable LETTIERE, Kary MEZA PA Unavailable Unavailable LETTIERE, Kary MEZA PA Unavailable Unavailable LETTIERE, Kary MEZA PA Unavailable Unavailable LETTIERE, Kary MEZA PA Unavailable Unavailable QuinnShruthi MD Unavailable Unavailable Quinn, M Fabienne MD Unavailable Unavailable QuinnShruthi wagner MD Unavailable Unavailable QuinnShruthi MD Unavailable Unavailable QuinnShruthi MD Unavailable Unavailable QuinnShruthi MD Unavailable Unavailable QuinnShruthi MD Unavailable Unavailable QuinnShruthi MD Unavailable Unavailable QuinnShruthi MD Unavailable Unavailable QuinnShruthi MD Unavailable Unavailable QuinnShruthi reyes MD Unavailable Unavailable QuinnShruthi MD Unavailable Unavailable QuinnShruthi MD Unavailable Unavailable QuinnShruthi MD Unavailable Unavailable QuinnShruthi MD Unavailable Unavailable QuinnShruthi MD Unavailable Unavailable QuinnShruthi MD Unavailable Unavailable QuinnShruthi MD Unavailable Unavailable QuinnShruthi wagner MD Unavailable Unavailable QuinnShruthi MD Unavailable Unavailable Shruthi Ball MD Unavailable Unavailable Shruthi Ball MD Unavailable Unavailable Shruthi Ball MD Unavailable Unavailable QuinnShruthi wagner MD Unavailable Unavailable Shruthi Ball MD Unavailable Unavailable Shruthi Ball MD Unavailable Unavailable Shruthi Ball MD Unavailable Unavailable Shruthi Ball MD Unavailable Unavailable Shruthi Ball MD Unavailable Unavailable Shruthi Ball MD Unavailable Unavailable Shruthi Ball MD Unavailable Unavailable Shruthi Ball MD Unavailable Unavailable Shruthi Ball MD Unavailable Unavailable Shruthi Ball MD Unavailable Unavailable Shruthi Ball MD Unavailable Unavailable Shruthi Ball MD Unavailable Unavailable Shruthi Ball MD Unavailable Unavailable Shruthi Ball MD Unavailable Unavailable Shruthi Ball MD Unavailable Unavailable Shruthi Ball MD Unavailable Unavailable Shruthi Ball MD Unavailable Unavailable Shruthi Ball MD Unavailable Unavailable Shruthi Ball MD Unavailable Unavailable Shruthi Ball MD Unavailable Unavailable Shruthi Ball MD Unavailable Unavailable Shruthi Ball MD Unavailable Unavailable Shruthi Ball MD Unavailable Unavailable Shruthi Ball MD Unavailable Unavailable Shruthi Ball MD Unavailable Unavailable Shruthi Ball MD Unavailable Unavailable Shruthi Ball MD Unavailable Unavailable QuinnShruthi MD Unavailable Unavailable Quinn, Shruthi Loving MD Unavailable Unavailable Quinn, Shruthi Loving MD Unavailable Unavailable Quinn, Shruthi Loving MD Unavailable Unavailable Quinn, M Fabienne BENOIT Unavailable Unavailable Quinn, Shruthi Loving MD Unavailable Unavailable Quinn, Shruthi Loving MD Unavailable Unavailable Quinn, Shruthi Loving MD Unavailable Unavailable Quinn, Shruthi Loving MD Unavailable Unavailable Quinn, Shruthi Loving MD Unavailable Unavailable Quinn, M Fabienne BENOIT Unavailable Unavailable Quinn, Shruthi Loving MD Unavailable Unavailable Quinn, Shruthi Loving MD Unavailable Unavailable Quinn, Shruthi Loving MD Unavailable Unavailable Quinn, M Fabienne BENOIT Unavailable Unavailable Quinn, M Fabienne BENOIT Unavailable Unavailable Quinn, M Fabienne BNEOIT Unavailable Unavailable Quinn, M Fabienne BENOIT Unavailable Unavailable Quinn, M Fabienne BENOIT Unavailable Unavailable Quinn, Shruthi Loving MD Unavailable Unavailable Quinn, Shruthi Loving MD Unavailable Unavailable Quinn, Shruthi Loving MD Unavailable Unavailable Quinn, Shruthi Loving MD Unavailable Unavailable Quinn, Shruthi Loving MD Unavailable Unavailable Quinn, Shruthi Loving MD Unavailable Unavailable Quinn, M Fabienne BENOIT Unavailable Unavailable Quinn, Shruthi Loving MD Unavailable Unavailable Quinn, Shruthi Loving MD Unavailable Unavailable Quinn, M Fabienne BENOIT Unavailable Unavailable Quinn, M Fabienne BENOIT Unavailable Unavailable Quinn, M Fabienne BENOIT Unavailable Unavailable Quinn, M Fabienne BENOIT Unavailable Unavailable Quinn, Shruthi Loving MD Unavailable Unavailable Re-disclosure Warning The records that you are about to access may contain information from federally-assisted alcohol or drug abuse programs. If such information is present, then the following federally mandated warning applies: This information has been disclosed to you from records protected by federal confidentiality rules (42 CFR part 2). The federal rules prohibit you from making any further disclosure of this information unless further disclosure is expressly permitted by the written consent of the person to whom it pertains or as otherwise permitted by 42 CFR part 2. A general authorization for the release of medical or other information is NOT sufficient for this purpose. The Federal rules restrict any use of the information to criminally investigate or prosecute any alcohol or drug abuse patient.The records that you are about to access may contain highly sensitive health information, the redisclosure of which is protected by Article 27-F of the [facility] Public Health law. If you continue you may have access to information: Regarding HIV / AIDS; Provided by facilities licensed or operated by the [facility] Office of Mental Health; or Provided by the [facility] Office for People With Developmental Disabilities. If such information is present, then the following [facility] mandated warning applies: This information has been disclosed to you from confidential records which are protected by state law. State law prohibits you from making any further disclosure of this information without the specific written consent of the person to whom it pertains, or as otherwise permitted by law. Any unauthorized further disclosure in violation of state law may result in a fine or prison sentence or both. A general authorization for the release of medical or other information is NOT sufficient authorization for further disc losure. Family History Family Member Name Family Member Gender Family Member Status Date o f Status Description Data Source(s) Unknown Unknown Problem [facility] ([facility]ISTERED NURSE) Unknown Unknown Problem [facility] ([facility] mother Unknown Male Problem MEDENT ([facility]) 67y/o Unknown Female Problem MEDENT ([facility]) Unknown Unknown Encounters Encounter Providers Location Date Indications Data Source(s ) Unknown [address] [facility] [place] [address] 08/20/2021 12:00:00 AM EDT eCW1 ([facility]) Outpatient Attender: Fabienne Elias 02:30:00 PM EDT MEDENT ([facility] ) Unknown [address] [facility] [place] [address] 08/13/2021 12:00:00 AM EDT eCW1 ([facility]) [place] [address] [facility] [address] [place] [address] 08/09/2021 12:00:00 AM EDT eCW1 ([facility]) [place] [address] [facility] [address] [place] [address] 08/06/2021 12:00:00 AM EDT eCW1 ([facility]) Unknown [address] [facility] [place] [address] 08/03/2021 12:00:00 AM EDT eCW1 ([facility]) Outpatient [address] [facility] [place] [address] 07/26/2021 12:00:00 AM EDT eCW1 ([facility]) Outpatient Attender: Fabienne Elias 10:00:00 AM EDT MEDENT ([facility] ) Outpatient Attender: SUSANA brian 12/15/2020 07:10:00 AM EST MEDENT ([facility]) Outpatient Attender: Fabienne Elias 07:00:00 AM EST MEDENT ([facility] ) Immunizations Vaccine Date Status Description Data Source(s) COVID-19 VACCINE Moderna 02/08/2021 12:00:00 AM EDT completed [facility] Vaccine Series Complete: YESThis Data wa s Submitted to [facility] Via [employer]. COVID-19 VACCINE Moderna 01/11/2021 12:00:00 AM EDT completed [facility] Vaccine Series Complete: NOThis Data was Submitted to [facility] Via [employer]. Medications Medication Brand Name Start Date Product Form Dose Route Admi nistrative Instructions Pharmacy Instructions Status Indications Reaction Description Data Source(s) Covid-19 vaccine, Unspecified 02/08/2021 12:00:00 AM EDT completed [facility] ([facility]) Medication administered onsite Covid-19 vaccine, Unspecified 01/11/2021 12:00:00 AM EDT completed [facility] ([facility]) Medication administered onsite Cyclobenzaprine hydrochloride 10 MG Oral Tablet Cyclobenzapr ine HCL 12/15/2020 12:00:00 AM EST active M EDENT ([facility]) Ibuprofen 800 MG Oral Tablet Ibuprofen 12/15/2020 12:00:00 AM EST active MEDENT ([facility]) Insurance Providers Payer name Policy type / Coverage type Policy ID Covered green party ID Covered green party's relationship to bruce Policy Bruce Plan Information [facility] Part B [id number] Self [id number] Cigna/MVP Con Gen/Prefcar Commercial [id number] Self [id number] [place] BC/BS Commercial [id number] Family Dependent [id number] BS [place] Commercial [id number] Family Dependent BC [employer]OYEE PROGRAM [id number] HU2 [id number] BS Fep Commercial [id number] Family Dependent [id number] [facility] [id number] [employer] Federal Plan Commercial [id number] Family Dependent [id number] [facility] FEDERAL [id number] HU2 [id number] [facility] FEDERAL EMPLOYEE PROGRAM [id number] HU2 [id number] [facility] Federal Plan Commercial [id number] Family Dependent BC BS [place] FEDERAL B [id number] P [id number] BS Fep Commercial [id number] Family Dependent [id number] Cigna/Conn Gen/[employer] Commercial [id number] Self [id number] Problems, Conditions, and Diagnoses Code Display Name Description Problem Type Effective Dates Data Source(s) D05.12 [id number] Ductal carcinoma in situ of left k[address]ie [address] Problem 07/26/2021 12:00:00 AM EDT eCW1 ([facility]) D05.12 [id number] Intraductal carcinoma in situ of left breast Problem 07/23/2021 12:00:00 AM EDT eCW1 ([facility]) Surgeries/Procedures Procedure Description Date Indications Data Source(s) OFFICE OUTPATIENT VISIT 15 MINUTES 08/14/2021 12:00:00 AM EDT MEDENT ([facility]) ECG ROUTINE ECG W/LEAST 12 LDS W/I&R 07/12/2021 12:00: 00 AM EDT MEDENT ([facility]) OFFICE OUTPATIENT VISIT 25 MINUTES 07/12/2021 12:00:00 AM EDT MEDENT ([facility]) Mammogram 06/29/2021 12:00:00 AM EDT M EDENT ([facility]) Mammogram 06/04/2021 12:00:00 AM EDT EDENT ([facility]) Results ID Date Data Source [id number] 08/23/2021 11:40:00 AM EDT [facility] Name Value Range Interpretation Code Description Data Elba rce(s) Supporting Document(s) SARS-CoV-2 (COVID-19) RNA [Presence] in Respiratory specimen by PARDEEP with probe detection Not Detected [facility] This lab was ordered by [facility] and reported by [employer] ID Date Data Source [id number] 08/23/2021 11:40:00 AM EDT MEDENT [facility] Name Value Range Interpretation Code Description Data Elba rce(s) Supporting Document(s) Coronavirus 2019 Nasopharygeal Laboratory test result [facility] ([facility] ASSAY INFORMATION: Real Time RT-PCR NOTE: The COVID-19 assay has been cleared by the U.S. Food and Drug Administration under the Emergency Use Authorization (EUA). [facility] and [employer] are designated as high complexity laboratories by the Clinical Laboratory Improvement Amendments of 1988(CLIA) and are qualified to perform this test. Not Detected ID Date Data Source [id number] 08/14/2021 03:01:00 PM EDT MEDENT ([facility]) Name Value Range Interpretation Code Description Data Elba rce(s) Supporting Document(s) Glucose [Mass/volume] in Serum or Plasma 100 mg/dL 74-99 MEDENT ([facility]) 100-125 mg/dL PRE-DIABETES/FASTING >126 mg/dL DIABETES/FASTING Urea nitrogen [Mass/volume] in Serum or Plasma 19 mg/dL 7-18 MED[facility] ([facility]) Creatinine 0.9 mg/dL 0.6-1.3 MED[facility] ([facility]) Potassium [Moles/volume] in Serum or Plasma 5.3 meq/L 3.5-5.1 MEDENT ([facility]) NOTE: RESULT VERIFIED. NO VISIBLE HEMOLYSIS. Sodium [Moles/volume] in Serum or Plasma 141 meq/L 136-145 MED[facility] ([facility]) Chloride [Moles/volume] in Serum or Plasma 104 meq/L 98-107 [facility] ([facility]) Alkaline phosphatase isoenzyme [Units/volume] in Serum or Pl asma 82 mg/dL 46-116 [facility] ([facility]) Calcium [Mass/volume] in Serum or Plasma 10.1 mg/dL 8.5-10.1 [facility] ([facility]) Carbon dioxide, total [Moles/volume] in Serum or Plasma 34 meq/L 21 -32 [facility] ([facility]) Alanine aminotransferase [Enzymatic activity/volume] in Seru m or Plasma 37 U/L 12-78 [facility] ([facility]) Aspartate aminotransferase [Enzymatic activity/volume] in Serum or Plasma 21 U/L 15-37 [facility] ([facility] ) Total Bilirubin 0.3 mg/dL 0.2-1.0 MEDENT ([facility]) Proteinase 3 Ab [Units/volume] in Serum 7.5 g/dL 6.4-8.2 [facility] ([facility]) Albumin [Mass/volume] in Serum or Plasma 4.1 g/dL 3.4-5.0 [facility] ([facility]) A/G Ratio 1.21 CALC 1.00-1.90 [facility] ([facility]) Glomerular filtration rate/1.73 sq M pre dicted among blacks [Volume Rate/Area] in Serum or Plasma by Creatinine-based formula (MDRD) Laboratory test result [facility] ([facility]) <content>CHRONIC KIDNEY DISEASE STAGING PER NKF</content>
<content></content>
<content>STAGE I & II GFR >= 60 NORMAL TO MILDLY DECREASED</content>
<content>STAGE III GFR 30-59 MODERATELY DECREASED</content>
<content>STAGE IV GFR 15-29 SEVERELY DECREASED</content>
<content>STAGE V GFR <15 VERY LITTLE GFR LEFT</content>
<content>ESRD GFR <15 ON COMPUTER SYSTEMS DESIGN ANALYST</content>
<content></content> Glomerular filtration rate/1.73 sq M pre dicted among non-blacks [Volume Rate/Area] in Serum or Plasma by Creatinine-based formula (MDRD) Laboratory test result [facility] ([facility] ) ID Date Data Source [id number] 08/14/2021 03:01:00 PM EDT [facility] ([facility] Name Value Range Interpretation Code Description Data Elba rce(s) Supporting Document(s) Leukocytes [#/volume] in Blood by Automated count 6.1 x10*3/UL 4.1-10 .9 [facility] ([facility] Erythrocytes [#/volume] in Blood by Automated count 4.28 x10*6/UL 4.2 0-6.30 [facility] ([facility]) Hemoglobin [Mass/volume] in Blood 12.7 g/dL 12.0-18.0 [facility] ([facility]) Hematocrit [Volume Fraction] of Blood by Automated count 37.3 % 3 7.0-51.0 [facility] ([facility]) MCV 87.1 fL 80.0-97.0 [facility] ([facility]) MCH 29.7 pg 26.0-32.0 [facility]) Erythrocyte distribution width [Ratio] by Automated count 12.2 % 11.6-13.7 [facility] ([facility]) MCHC 34.0 g/dL 31.0-38.0 [facility] ([facility]) Lymph % 26.3 % 10.0-58.5 [facility] ([facility]) MPV 8.7 FL 7.8-11.0 MED[facility] ([facility]) Platelets [#/volume] in Blood by Automated count 209 x10*3/UL 140-440 [facility] ([facility]) Lymph # 1.6 x10*3/UL 0.6-4.1 [facility] ([facility]) Neut % 66.9 % 37.0-92.0 [facility] ([facility]) Mid % 6.8 % 1.7-9.3 [facility] ([facility]) Neut # 4.1 x10*3/UL 2.0-7.8 [facility] ([facility]) Mid # 0.4 x10*3/UL 0.1-0.6 [facility] ([facility]) ID Date Data Source MRI BREAST BILAT WITH AND WITHOUT CONTRAST MR.BREBILWW [facility] or [facility] 08/03/2021 12:00:00 AM EDT eCW1 ([facility]) Name Value Range Interpretation Code Description Data Elba rce(s) Supporting Document(s) MRI BREAST BILAT WITH AND WITHOUT CONTRAST PLZ or [facility] eCW1 ([facility]) ID Date Data Source [id number] 07/17/2021 03:33:00 PM EDT MED[facility] ([facility]) Name Value Range Interpretation Code Description Data Elba rce(s) Supporting Document(s) Surgical pathology study Laboratory test result [facility] ([facility]) FINAL DIAGNOSIS Left breast, biopsy: Ductal carcinoma [...] [id number] Signed CYNTHIA SEGAL MD 07/20/2021 0842 ID Date Data Source [id number] 07/12/2021 11:01:00 AM EDT MEDENT ([facility]) Name Value Range Interpretation Code Description Data Elba rce(s) Supporting Document(s) Thyrotropin [Units/volume] in Serum or Plasma by Detec tion limit <= 0.05 mIU/L 1.89 uIU/mL 0.36-3.74 [facility] ([facility] ) ID Date Data Source [id number] 07/12/2021 11:01:00 AM EDT MED[facility] ([facility]) Name Value Range Interpretation Code Description Data Elba rce(s) Supporting Document(s) Urea nitrogen [Mass/volume] in Serum or Plasma 11 mg/dL 7-18 [facility] ([facility]) Glucose [Mass/volume] in Serum or Plasma 78 mg/dL 74-99 [facility] ([facility]) 100-125 mg/dL PRE-DIABETES/FASTING >126 mg/dL DIABETES/FASTING Sodium [Moles/volume] in Serum or Plasma 142 meq/L 136-145 [facility] ([facility]) Potassium [Moles/volume] in Serum or Plasma 4.1 meq/L 3.5-5.1 [facility] ([facility]) Creatinine 0.7 mg/dL 0.6-1.3 [facility]) Carbon dioxide, total [Moles/volume] in Serum or Plasma 32 meq/L 21 -32 [facility] ([facility]) Chloride [Moles/volume] in Serum or Plasma 104 meq/L 98-107 [facility] ([facility]) Calcium [Mass/volume] in Serum or Plasma 9.6 mg/dL 8.5-10.1 [facility] ([facility]) Glomerular filtration rate/1.73 sq M pre dicted among blacks [Volume Rate/Area] in Serum or Plasma by Creatinine-based formula (MDRD) Laboratory test result [facility] ([facility]) <content>CHRONIC KIDNEY DISEASE STAGING PER NKF</content>
<content></content>
<content>STAGE I & II GFR >= 60 NORMAL TO MILDLY DECREASED</content>
<content>STAGE III GFR 30-59 MODERATELY DECREASED</content>
<content>STAGE IV GFR 15-29 SEVERELY DECREASED</content>
<content>STAGE V GFR <15 VERY LITTLE GFR LEFT</content>
<content>ESRD GFR <15 ON COMPUTER SYSTEMS DESIGN ANALYST</content>
<content></content> Glomerular filtration rate/1.73 sq M pre dicted among non-blacks [Volume Rate/Area] in Serum or Plasma by Creatinine-based formula (MDRD) Laboratory test result [facility] ([facility] ID Date Data Source [id number] 07/12/2021 11:01:00 AM EDT [facility] ([facility]) Name Value Range Interpretation Code Description Data Elba rce(s) Supporting Document(s) Erythrocytes [#/volume] in Blood by Automated count 4.26 x10*6/UL 4.2 0-6.30 [facility] ([facility]) Hemoglobin [Mass/volume] in Blood 12.7 g/dL 12.0-18.0 [facility] ([facility]) Leukocytes [#/volume] in Blood by Automated count 5.7 x10*3/UL 4.1-10 .9 [facility] ([facility]) Hematocrit [Volume Fraction] of Blood by Automated count 37.2 % 3 7.0-51.0 [facility] ([facility]) MCV 87.3 fL 80.0-97.0 [facility]) MCH 29.7 pg 26.0-32.0 [facility] MCHC 34.0 g/dL 31.0-38.0 [facility] Platelets [#/volume] in Blood by Automated count 223 x10*3/UL 140-440 [facility] ([facility] Erythrocyte distribution width [Ratio] by Automated count 12.2 % 11.6-13.7 [facility] ([facility]) Mid % 6.9 % 1.7-9.3 [facility] ([facility]) Lymph % 22.6 % 10.0-58.5 [facility] ([facility]) MPV 8.6 FL 7.8-11.0 [facility] Mid # 0.5 x10*3/UL 0.1-0.6 [facility] ([facility]) Lymph # 1.2 x10*3/UL 0.6-4.1 [facility] ([facility]) Neut % 70.5 % 37.0-92.0 [facility] Neut # 4.0 x10*3/UL 2.0-7.8 [facility] ([facility]) Procedure Social History Code Duration Value Status Description Data Source(s ) Smoking 07/26/2021 12:00:00 AM EDT Never Smoker completed Never S moker eCW1 ([facility]) Smoking 07/26/2021 12:00:00 AM EDT Never Smoker completed Never S moker eCW1 ([facility]) Smoking 07/26/2021 12:00:00 AM EDT Never Smoker completed Never S moker eCW1 ([facility]) Smoking 07/26/2021 12:00:00 AM EDT Never Smoker completed Never S moker eCW1 ([facility]) Smoking 07/26/2021 12:00:00 AM EDT Never Smoker completed Never S moker eCW1 ([facility]) Smoking 07/26/2021 12:00:00 AM EDT Never Smoker completed Never S moker eCW1 ([facility]) Smoking 12/15/2020 12:00:00 AM EST Patient has never smoked co mpleted Patient has never smoked MED[facility] ([facility]) Vital Signs ID Date Data Source UNK Name Value Range Interpretation Code Description Data Source(s) Systolic blood pressure 130 mm[Hg] 130 mm[Hg] M EDENT ([facility]) Diastolic blood pressure 76 mm[Hg] 76 mm[Hg] [facility] ([facility]) Heart rate 58 /min 58 /min [facility] ([facility]) Body height 65.75 [in_i] 65.75 [in_i] MED[facility] ([facility]) 5'5.75" Body weight 148.00 [lb_av] 148.00 [lb_av] MEDEN T ([facility]) Body mass index (BMI) [Ratio] 24.1 kg/m2 24.1 k g/m2 [facility] ([facility]) Body weight 146 [lb_av] 146 [lb_av] W1 ([facility]) Body weight 66.22 kg 66.22 kg W1 ([facility] System) Body height 66 [in_i] 66 [in_i] eCW1 ([facility]) Body mass index (BMI) [Ratio] 23.56 kg/m2 23.56 kg/m2 W1 ([facility]) Heart rate 60 /min 60 /min eCW1 ([facility]) Respiratory rate 18 /min 18 /min eCW1 ([facility]) Body temperature 97.8 [degF] 97.8 [degF] eCW1 ( [facility]) Systolic blood pressure 114 mm[Hg] 114 mm[Hg] e CW1 ([facility]) Diastolic blood pressure 76 mm[Hg] 76 mm[Hg] eCW1 ([facility]) Body weight 146.38 [lb_av] 146.38 [lb_av] MEDEN T ([facility]) Systolic blood pressure 122 mm[Hg] 122 mm[Hg] M EDENT ([facility]) RT Arm Diastolic blood pressure 70 mm[Hg] 70 mm[Hg] MEDENT ([facility]) RT Arm Heart rate 69 /min 69 /min MEDENT ([facility]) Body height 65.75 [in_i] 65.75 [in_i] MEDENT ([facility]) 5'5.75" Oxygen saturation in Arterial blood by Pulse oximetry --post exerci se 98 % 98 % MEDENT ([facility]) RM Air Body mass index (BMI) [Ratio] 23.8 kg/m2 23.8 k g/m2 [facility]) Systolic blood pressure 124 mm[Hg] 124 mm[Hg] [facility] ([facility] [place]) Diastolic blood pressure 82 mm[Hg] 82 mm[Hg] [facility] ([facility], [facility]) Heart rate 56 /min 56 /min [facility] ([facility] [place]) Respiratory rate 16 /min 16 /min [facility] ( [facility], [facility]) Oxygen saturation in Arterial blood by Pulse oximetry 99 % 99 % [facility] ([facility], [facility]) Body temperature 97.9 [degF] 97.9 [degF] [facility] ([facility], [facility]) Body weight 145.00 [lb_av] 145.00 [lb_av] MEDEN T ([facility], [facility]) Body height 66 [in_i] 66 [in_i] [facility] ([facility]) 5'6" Body mass index (BMI) [Ratio] 23.4 kg/m2 23.4 k g/m2 [facility] ([facility], [facility]) Heart rate 56 /min 56 /min [facility] ([facility]) Systolic blood pressure 118 mm[Hg] 118 mm[Hg] [facility] ([facility]) RT Arm Diastolic blood pressure 80 mm[Hg] 80 mm[Hg] [facility] ([facility]) RT Arm Body mass index (BMI) [Ratio] 23.8 kg/m2 23.8 k g/m2 [facility] ([facility]) Body height 65.75 [in_i] 65.75 [in_i] MEDENT ( [facility] 5'5.75" Body weight 146.50 [lb_av] 146.50 [lb_av] MEDEN T ([facility])
--- OUTSIDE RECORDS SUMMARY | 2021-08-28 10:43 | CCD | Continuity of Care Document ---
Author Author Emely Ball M.D. 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 Onset: 1 Elevated blood-pressure reading without diagnosis of h ypertension Fabienne Ball M.D. Onset: 07/29/2011 Social History Type Date Description Comments Sex Unknown ETOH Use Rarely consumes wine Tobacco Use Start: Unknown Patient has never smoked Allergies, Adverse Reactions, Alerts Description No Known Drug Allergies Medications Active Medications SIG Qnty Indications Ordering Provide r Date Multivitamins Tablets 1 po q d Fabienne Ball M.D. 07/31/2011 Calcium 600 + D [id number] Tab lets 1 po qd Fabienne Ball [...] Given 08/11/2019 Influenza,Unspecified U-Flu Given 07/20/2018 Influenza,Unspecified 48951 Given 08/14/2017 Influenza Vaccin e Quadrivalent Preser/Antibiotic Free Im Use [id number] Refused 08/05/2012 Fluvirin Virus Vaccine Vital Signs Date Vital Result Comment 07/12/2021 10:03am BP Systolic 122 mmHg RT Arm BP Diastolic 70 mmHg RT Arm Heart Rate 69 /min Height 65.75 inches 5'5.75" Weight 146.38 lb O2 Saturation Level with Exercise 98 % RM Air BMI (Body Mass Index) 23.8 kg/m2 08/28/2020 7:57am BP Systolic 118 mmHg RT Arm BP Diastolic 80 mmHg RT Arm Heart Rate 56 /min Height 65.75 inches 5'5.75" Weight 146.50 lb BMI (Body Mass Index) 23.8 kg/m2 Results Test Acquired Date Facility Test Result H/L Range Note Complete Blood Count 07/12/2021 [facility] Senior Medical Technologist: [place] [address] [phone] WBC 5.7 x10*3/UL 4.1 - 10.9 RBC [...] 2.0 - 7.8 Basic Metabolic Panel 07/12/2021 [facility] Senior Medical Technologist: [place] [address] [phone] Glucose 78 mg/dL 74 - 99 1 BUN 11 mg/dL 7 - 18 Creatinine 0.7 mg/dL 0.6 - 1.3 Sodium 142 mEq/L 136 - 145 Potassium 4.1 mEq/L 3.5 - 5.1 Chloride 104 mEq/L 98 - 107 Carbon Dioxide 32 mEq/L 21 - 32 Calcium 9.6 mg/dL 8.5 - 10.1 GFR >= 60 mL/min >60 GFR >= 60 mL/min >60 2 Laboratory test finding 07/12/2021 vivienne Cavazos Senior Medical Technologist: Dr Khadar Hopkins [place] [id number] [phone] Thyroid Stimulating Hormone 1.89 uIU/mL 0.3 6 - 3.74 1 100-125 mg/dL PRE-DIABET ES/FASTING >126 mg/dL DIABETES/FASTING 2 CHRONIC KIDNEY DISEASE STAGI NG PER NKF STAGE I & II GFR >= 60 NORMAL TO MILDLY DECREASED STAGE III GFR 30-59 MODERATELY DECREASED STAGE IV GFR 15-29 SEVERELY DECREASED STAGE V GFR <15 VERY LITTLE GFR LEFT ESRD GFR <15 ON SUPERVISOR PROP MAKING Procedures Date Code Description Status 07/12/2021 31575 Office/Outpatient Established Mo d MDM 30-39 Min Completed 07/12/2021 38216 EKG/Interpretation & Report Comp leted 06/29/2021 [id number] Mammogram Completed 06/04/2021 [id number] Mammogram Completed 06/01/2020 [id number] Mammogram Completed 05/20/2019 [id number] Mammogram Completed 11/06/2018 [id number] Colonoscopy Completed 05/28/2018 [id number] Mammogram Completed 05/19/2017 [id number] Mammogram Completed 05/03/2016 [id number] Mammogram Completed 05/02/2015 [id number] Mammogram Completed 04/29/2014 [id number] Mammogram Completed 04/28/2013 [id number] Mammogram Completed 04/27/2012 [id number] Mammogram Completed 02/16/2010 [id number] Mammogram Completed Medical Devices Description No Information Available Encounters Type Date Location Provider Dx Diagnosis Office Visit 07/12/2021 10:00a Laura Bruce PMelvin Ball M.D. Z01.810 Encounter for preprocedural cardiovascular [...] 8:00 am - Fab[facility] 07/12/2021 - Fabienne Ball M.D.* Z01.810 [...] Mental Status Description No Information Available Referrals Description No Information Available
--- OUTSIDE RECORDS SUMMARY | 2021-08-28 10:43 | CCD | Continuity of Care Document ---
Author Author Emely Ball M.D. Organization Unknown Address [address] [facility] [address] [place] [address] Phone [phone] Care Team Providers Care Electric Motor Winders Assembler Name Role Phone [facility] [phone] [facility] A - bowl topper AUTM Problems Active Problems Provider Date Low [...] Ball M.D. 07/31/2011 Calcium 600 + D [id number] Tab lets 1 po qd Fabienne Ball M.D. 07/31/20 11 Cranberry 500mg Capsules 1 by mouth every day Fabienne Ball M.D. 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 vivienne isbell Lofter: [place] [address] [phone] TSH <pending> Procedures Date Code Description Status 06/29/2021 [id number] Mammogram Completed 06/04/2021 [id number] Mammogram Completed 06/01/2020 [id number] Mammogram Completed 05/20/2019 [id number] Mammogram Completed 11/06/2018 [id number] Colonoscopy Completed 05/28/2018 [id number] Mammogram Completed 05/19/2017 [id number] Mammogram Completed 05/03/2016 [id number] Mammogram Completed 05/02/2015 [id number] Mammogram Completed 04/29/2014 [id number] Mammogram Completed 04/28/2013 [id number] Mammogram Completed 04/27/2012 [id number] Mammogram Completed 02/16/2010 [id number] Mammogram Completed Medical Devices Description No Information Available Encounters Description No Information Available Assessments Description No Information Available Plan of Treatment Future Appointment(s):* 08/29/2021 8:00 am - Fabienne Ball M.D. at [facility] 08/28/2020 - Fabienne Ball M.D.* Z00.00 Encounter for general adult medical examination without abnormal findings * N95.8 Other specified menopausal and perimenopausal disorders * N30.20 Other chronic cystitis without hematuria * R03.0 Elevated blood-pressure reading, without diagnosis of hypertension * R51.9 Headache, unspecified * Z86.010 Personal history of colonic polyps * M54.5 Low back pain * Z83.518 Family history of other specified eye disorder * Z13.89 Encounter for screening for other disorder * All * Comments:* 8. Health Maintenance. Up to date with colonoscopy 2019, repeat 3 years. Pap smear 2018 with normal HPV. Repeat 5 years. She has had her flu shot. TDAP 10/03. Shingrix is recommended. Mammogram is reviewed and will continue to be annual. Diet, exercise, Calcium, BSE reviewed. Functional Status Description No Information Available Mental Status Description No Information Available Referrals Description No Information Available
--- OUTSIDE RECORDS SUMMARY | 2021-08-28 10:43 | CCD | Continuity of Care Document ---
Author Author Emely Ball M.D. 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 07/31/2011 Calcium 600 + D [id number] Tab lets 1 po qd Fabienne Ball [...] Given 08/11/2019 Influenza,Unspecified U-Flu Given 07/20/2018 Influenza,Unspecified 80548 Given 08/14/2017 Influenza Vaccin e Quadrivalent Preser/Antibiotic Free Im Use [id number] Refused 08/05/2012 Fluvirin Virus Vaccine Vital [...] Result H/L Range Note Complete Blood Count 08/14/2021 [place] [facility] vivienne stephenson Special Education Aide: [place] [address] [phone] WBC 6.1 x10*3/UL 4.1 - 10.9 RBC [...] 2.0 - 7.8 Comprehensive Chem Profile 08/14/2021 [place] Special Education Aide: [place] [address] [phone] Glucose 100 mg/dL High 74 - 99 1 BUN 19 mg/dL High 7 - 18 Creatinine 0.9 mg/dL 0.6 - 1.3 Sodium 141 mEq/L 136 - 145 Potassium 5.3 mEq/L High 3.5 - 5.1 2 Chloride 104 mEq/L 98 - 107 Carbon [...] 60 mL/min >60 3 Laboratory test finding 07/17/2021 [facility] [address] [place] [address] [phone] Pathology Request For Service (SEE NOTE) 4 Complete Blood Count 07/12/2021 [facility] Special Education Aide: Dr Khadar Hopkins [place], [place] [id number] [phone] WBC 5.7 x10*3/UL 4.1 - 10.9 RBC [...] 2.0 - 7.8 Basic Metabolic Panel 07/12/2021 [facility] Special Education Aide: [place] [address] [phone] Glucose 78 mg/dL 74 - 99 5 BUN 11 mg/dL 7 - 18 Creatinine 0.7 mg/dL 0.6 - 1.3 Sodium 142 mEq/L 136 - 145 Potassium 4.1 mEq/L 3.5 - 5.1 Chloride 104 mEq/L 98 - 107 Carbon Dioxide 32 mEq/L 21 - 32 Calcium 9.6 mg/dL 8.5 - 10.1 GFR >= 60 mL/min >60 GFR >= 60 mL/min >60 6 Laboratory test finding 07/12/2021 [place] Special Education Aide: [place] [address] [phone] Thyroid Stimulating Hormone 1.89 uIU/mL 0.3 6 - 3.74 1 100-125 mg/dL PRE-DIABET ES/FASTING >126 mg/dL DIABETES/FASTING 2 NOTE: RESULT VERIFIED. NO VISIBLE HEMOLYSIS. 3 CHRONIC KIDNEY DISEASE STAGI NG PER NKF STAGE I & II GFR >= 60 NORMAL TO MILDLY DECREASED STAGE III GFR 30-59 MODERATELY DECREASED STAGE IV GFR 15-29 SEVERELY DECREASED STAGE V GFR <15 VERY LITTLE GFR LEFT ESRD GFR <15 ON PROMOTIONAL MODEL 4 FINAL DIAGNOSIS Left breast, biopsy: Ductal carcinoma in situ (cribriform type), grade 1 (of 3). Microcalcifications associated with both benign breast tissue and carcinoma in situ. Estrogen receptors: Positive (diffuse and strong in 100% of tumor cells). Progesterone receptors: Positive (diffuse and strong in 100% of tumor cells). 07/20/2021840 CLINICAL DIAGNOSIS Left breast microcalcifications 07/18/20211437 GROSS DIAGNOSIS Received in formalin labeled "left breast microcalcifications" and consists of a core fragment of tissue measuring from 0.5 to 1 cm. All in one. -OA 07/18/20211437 Signed CYNTHIA SEGAL MD 07/20/2021 0842 5 100-125 mg/dL PRE-DIABET ES/FASTING >126 mg/dL DIABETES/FASTING 6 CHRONIC KIDNEY DISEASE STAGI NG PER NKF STAGE I & II GFR >= 60 NORMAL TO MILDLY DECREASED STAGE III GFR 30-59 MODERATELY DECREASED STAGE IV GFR 15-29 SEVERELY DECREASED STAGE V GFR <15 VERY LITTLE GFR LEFT ESRD GFR <15 ON PROMOTIONAL MODEL Procedures Date Code Description Status 07/12/2021 62982 Office/Outpatient Established Mo d MDM 30-39 Min Completed 07/12/2021 81935 EKG/Interpretation & Report Comp leted 06/29/2021 [id number] Mammogram Completed 06/04/2021 [id number] Mammogram Completed 06/01/2020 [id number] Mammogram Completed 05/20/2019 [id number] Mammogram Completed 11/06/2018 [id number] Colonoscopy Completed 05/28/2018 [id number] Mammogram Completed 05/19/2017 [id number] Mammogram Completed 05/03/2016 [id number] Mammogram Completed 05/02/2015 [id number] Mammogram Completed 04/29/2014 [id number] Mammogram Completed 04/28/2013 [id number] Mammogram Completed 04/27/2012 [id number] Mammogram Completed 02/16/2010 [id number] Mammogram Completed Medical Devices Description No Information Available Encounters Type Date Location Provider Dx Diagnosis Office Visit 07/12/2021 10:00a [facility] Rowdy Ball M.D. Z01.810 Encounter [...] 8:15 am - Fabienne Ball M.D. at [facility] * 07/17/2022 8:00 am - Fabienne Ball M.D. at [facility] 07/12/2021 - Fabienne Ball M.D.* [...] Closed 07/26/2021 [facility] [address] [place], [place] [id number] [phone] Matty Chavez MD CONSULT FOR SCREENING COLONOSCOPY Patient N otified 08/28/2021 [facility] [address] [place] [address] [phone]
--- OUTSIDE RECORDS SUMMARY | 2021-08-28 10:43 | CCD ---
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 [id number] ALLERGIES No Known Allergies ENCOUNTERS from 1970 to 2021-08-08 Encounter Location Date Provider Diagnosis [facility] Breast Care [address] [place] [address] [place] [address] 07 Jul, 2021 Trinity Hoyos 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 Please evaluation and treat as necessary. Diagnosis 1 Ductal carcinoma in situ of left breast (D05.12) Referral Organization [facility] Breast Care Referring Provider First Name Trinity Referring Provider Last Name Soha Referring Provider Specialty Surgery Referred Provider Soni Branham [place] Referred Provider Specialty Oncology Referral Priority Routine General Notes Che Kapadia 07/26/2021 01:33:08 PM >Surgery not yet scheduled. Pathology and imaging @ [facility]. Reason New diagnosed Left breast DC IS. Please evaluate and treat as necessary. Diagnosis 1 Ductal carcinoma in situ of left breast (D05.12) Referral Organization [facility] Breast Care Referring Provider First Name Trinity Referring Provider Last Name Soha Referring Provider Specialty Surgery Referred Provider Lauri Dozier Referred Provider Specialty Radiation Oncology Referral Priority Routine General Notes Che Kapadia 07/26/2021 01:31:57 PM >Surgery not yet scheduled.Che Kapadia 07/26/2021 01:32:30 PM >Imaging and pathology done @ [facility].Che Kapadia 07/26/2021 01:32:50 PM >Referral faxed. VITAL SIGNS Weight 146 lbs Jul, Weight-kg 66.22 kg Jul, Height 66 in Jul, BMI 23.56 kg/m2 Jul, Heart Rate 60 /min Jul, Respiratory Rate 18 /min Jul, Temperature 97.8 degrees Fahrenheit Jul, Oximetry 100 Jul, Blood pressure systolic 114 mm Hg Jul, Blood pressure diastolic 76 mm Hg Jul, MEDICATIONS Medication SIG (Take, Route, Frequency, Duration) Notes Start Da te End Date Status Caltrate 600 650 mg Active Cranberry Plus Vitamin C 4200-20-3 MG-UNIT as directed Orally Active Multivitamin - 1 tablet Orally Once a day Active Cranberry - as directed Not-Taking PROCEDURES No Information RESULTS Component Value Reference Range MRI BREAST BILAT WITH AND WITHOUT CONTRA [facility] or [facility] Reviewed date:08/03/2021 18:23:12 Interpretation:AD Performing Lab:[facility],[address]], ,[place] [address] REASON FOR VISIT LEFT breast DCIS MEDICAL (GENERAL) HISTORY Type Description Date Medical [...] No Information FUNCTIONAL STATUS No Information ASSESSMENTS Encounter Date Diagnosis Assessment Notes Treatment Notes Treatm ent Clinical Notes Jul, Ductal carcinoma in situ of left breast (ICD-10 - D05.12) LEFT BREAST CANCER DCIS GRADE 1 ER 100% TN 100% cT i.s. cN0 cM0 ANATOMICAL STAGE 0 CLINICAL PROGNOSTIC STAGE: 0 PLAN: 1: Will obtain MRI breast to delineate extent of disease. BMP will be orders to assess kidney function 2. Will defer surgical procedure planning until MRI results are available 3. Preop testing/ medical clearance will need to be obtained prior to surgery 4. Genetic testing, declined today, patient will let us know if wants to pursue it at later time 5. Oncotype DX postop if invasive cancer is found and meets testing criteria and no NAC done 6. Referral to Medical Oncology post surgery 7. Referral to Radiation Oncology post surgery I reviewed the breast imaging and the pathology results with Ms. Glasgow and her family (). We have reviewed the overall breast cancer evaluation and staging. Based on the current information Ms. Glasgow was found to have left breast DUCTAL CARCINOMA IN SITU, GRADE 1, ER 100% TN 100% and falls into category Ti.s. This was found as calcifications on mammogram. She does not have palpable axillary lymph nodes on exam and her lymph node status is described as N0. I am going to order MRI of the breast to delineate extent of disease. She will need kidney test check prior (BMP). I have discussed various component of multidisciplinary approach to breast cancer which includes local treatments with surgery and radiation therapy and systemic treatments with antihormonal pill and possible chemotherapy. Regarding surgical component of the treatment, based on current information, patient is a candidate for both breast conserving surgery and for mastectomy. I explained to her that, surgery carries risks and potential complications, most common of which are risk of bleeding, infection and injury to surrounding structures like skin, nipple, muscle, lung, nerves especially long thoracic nerve and thoracodorsal nerve. Postsurgical complications may include, but are not limited to, numbness of the skin and or nipple, scarring, bruising, hematomas, seromas, flap and/or nipple necrosis, lymphedema, nerve injury causing weakness in motor function of upper extremity or scapula, contour deformity, poor cosmetic outcomes and need for additional surgeries. Those risks were explained to the patient and she expressed understanding. We have discussed that with breast conserving surgery there is a higher risk of locoregional recurrence of tumor because there is more [place] breast tissue left behind. The percentage of locoregional recurrence is lower with mastectomy than with breast conserving surgery but it is not zero as it is impossible to remove 100% of all breast tissue cells during mastectomy. There is also 10-20% chance of positive margins with breast conserving surgery which will warrant additional surgery to clear those margins. I also explained that with breast conserving surgery she may need to have radiation therapy in order to assure equal survival between the breast conservative treatment and mastectomy. Radiation therapy after mastectomy will be warranted only if the final mastectomy margins are positive or if lymph nodes are positive. We have also discussed that if she chooses mastectomy, she is entitled to reconstruction if she wishes to have it. Reconstruction options will be discussed in details with plastic surgeon. I have explained to the patient that reconstruction is considered part of breast cancer treatment and is covered by insurance. I explained that in cases of invasive cancer, we pursue sentinel lymph node biopsy in fit patients in addition to removal of the tumor from the breast. I explained that this is done to test the very first lymph nodes draining the breast for presence of cancer. This will be done with radionucleotide injection and possibly with blue dye tracer. If the lymph nodes contain cancer, depending on what surgery was performed and how many lymph nodes are positive, additional surgery and/ or radiation therapy to axilla may be warranted as well. At this time patient does not have signs of invasive disease, hence the sentinel lymph node biopsy will not be pursued at index surgery. Regarding evaluation of contralateral breast, she had a screening mammogram done on 06/04/2021 and this did not show any suspicious lesions in the contralateral breast per radiologist report. I am planning to get MRI of the breast to delineate extent of left breast disease. This will also evaluate the right breast for suspicious lesions. Since patient was diagnosed with breast cancer, she qualifies for genetic testing. I provided the genetic testing counseling -see the note below. At this time, patient declined genetic testing. She will let me know if she changes her mind. I discussed with the patient and her family that Oncotype Dx is used to predict the probability of Hormone (+) Her2(-) INVASIVE cancer coming back. I explained that if the test comes back with a high score, chemotherapy may be considered. At this time, we do not have signs of invasive disease. We will consider this test postop if indicated. I will place referral for Medical Oncology. This appointment can be scheduled after surgery. I explained to the patient that she may need to follow up with radiation oncology if she wants to pursue breast conserving surgery or if lymph nodes or mastectomy margins are positive. I will place this referral. She can schedule appointment with [facility] after surgery. Finally, I informed patient that an appointment moose be scheduled for her preoperatively with her primary care doctor as we will need a surgical clearance, latest labs and imaging (CBC, BMP, CXR,EKG). All questions were answered. Patient and her family agree with the plan Jul, Genetic testing (ICD-10 - Z13.79) Patient participated in our cancer screening program and she was identified as a person who may be eligible for genetic testing due to her diagnosed left breast cancer. Possible outcomes of genetic testing were discussed with patient with emphasis on the fact that the majority of cancers are not related to germline mutations but are rather due to somatic mutations. I have explained that the genetic testing can come back as positive for specific pathological gene mutation, as negative, or as variant of unknown significance (VUS) which means that there is duration in the gene however we do not have enough information to determine the significance importance of this ulceration. I explained to the patient that we do not asked on VUS and treat them as negative until they are reclassified as pathologically significant mutation or benign alteration. We have discussed that regardless of test outcome patient cannot have her health insurance denied in the future. Patient is interested in proceeding with genetic testing. We will provide her with the blood kit today. We will update her about the results of genetic testing when the test is completed My patient's relatives who have had breast and/or ovarian cancer are not available for genetic testing because: ___They are . ___My patient does not have any contact with affected relatives. ___The affected relatives refused testing. _x_ Pt has a personal history of breast cancer. This patient does not have a known hereditary cancer genetic mutation on either side of the family. This patient does not have known Ashkenazi Christian ancestry on either side of the family. Assessment & Plan: This patient's personal and/or family history of cancer is suggestive of a hereditary cancer syndrome. Patient meets the criteria for genetic testing established by medical society guidelines and I recommended that the patient pursues testing based on these criteria. Today we discussed how genetics may affect cancer susceptibility and the options, alternatives, benefits, limitations and potential outcomes of genetic testing for hereditary cancer syndromes. Patient was also made aware of the limitations of testing an unaffected individual for a cancer predisposition syndrome. The genetic test recommended for patient today is called the Integrated [employer]sis with [employer]. The Integrated [employer] analyzes 35 genes including BRCA1, BRCA2, MLH1, MSH2, MSH6, and PMS2 to identify germline genetic mutations that cause an increased risk for eight primary cancers including: breast, ovarian, endometrial, colorectal, gastric, pancreatic, prostate, and melanomas. Due to significant clinical overlap in hereditary cancer susceptibility genes, a molecular diagnosis of a hereditary cancer condition is necessary to clarify the cancer risks patient carries and the screening, management, and treatment options most appropriate for patient. Jul, Family history of cancer (ICD-10 - Z80.9) Patient has a family history of breast cancer in her paternal aunt and paternal cousin. She is eligible for genetic testing. Jul, Other Time spent face to face with the patient with over 50 % of time spent counseling the patient : 80 min Time spent reviewing the chart, requested consult information, radiology reports and imagin min TOTAL TIME SPENT FOR CARE OF THIS PATIENT AT THIS ENCOUNTER: 100 min I, Dr. Hoyos, reviewed the medical note prepared by the scribe and confirm the findings and the discussed plan. PLAN OF TREATMENT Treatment Notes Assessment Notes Clinical Notes Ductal carcinoma in situ of left breast LEFT BREAST CA NCERDCIS GRADE 1ER 100% TN 100%cT i.s. cN0 [id number] STAGE 0CLINICAL PROGNOSTIC STAGE: 0PLAN:1: Will obtain MRI breast to delineate extent of disease. BMP will be orders to assess k idney function2. Will defer surgical procedure planning until MRI results are available3. Preop testing/ medical clearance will need to be obtained prior to surgery4. Genetic testing, declined today, patient will let us know if wants to pursue it at later time5. Oncotype DX postop if invasive cancer is found and meets testing criteria and no NAC done6. Referral to Medical Oncology post surgery7. Referral to Radiation Oncology post surgeryI reviewed the breast imaging and the pathology results with Ms. Glasgow and her family (). We have reviewed the overall breast cancer evaluation and staging.Based on the current information Ms. Glasgow was found to have left breast DUCTAL CARCINOMA IN SITU, GRADE 1, ER 100% TN 100% and falls into category Ti.s. This was found as calcifications on mammogram.She does not have palpable axillary lymph nodes on exam and her lymph node status is described as N0.I am going to order MRI of the breast to delineate extent of disease. She will need kidney test check prior (BMP).I have discussed various component of multidisciplinary approach to breast cancer which includes local treatments with surgery and radiation therapy and systemic treatments with antihormonal pill and possible chemotherapy.Regarding surgical component of the treatment, based on current information, patient is a candidate for both breast conserving surgery and for mastectomy.I explained to her that, surgery carries risks and potential complications, most common of which are risk of bleeding, infection and injury to surrounding structures like skin, nipple, muscle, lung, nerves especially long thoracic nerve and thoracodorsal nerve. Postsurgical complications may include, but are not limited to, numbness of the skin and or nipple, scarring, bruising, hematomas, seromas, flap and/or nipple necrosis, lymphedema, nerve injury causing weakness in motor function of upper extremity or scapula, contour deformity, poor cosmetic outcomes and need for additional surgeries. Those risks were explained to the patient and she expressed understanding.We have discussed that with breast conserving surgery there is a higher risk of locoregional recurrence of tumor because there is more [place] breast tissue left behind. The percentage of locoregional recurrence is lower with mastectomy than with breast conserving surgery but it is not zero as it is impossible to remove 100% of all breast tissue cells during mastectomy. There is also 10-20% chance of positive margins with breast conserving surgery which will warrant additional surgery to clear those margins. I also explained that with breast conserving surgery she may need to have radiation therapy in order to assure equal survival between the breast conservative treatment and mastectomy. Radiation therapy after mastectomy will be warranted only if the final mastectomy margins are positive or if lymph nodes are positive.We have also discussed that if she chooses mastectomy, she is entitled to reconstruction if she wishes to have it. Reconstruction options will be discussed in details with plastic surgeon. I have explained to the patient that reconstruction is considered part of breast cancer treatment and is covered by insurance.I explained that in cases of invasive cancer, we pursue sentinel lymph node biopsy in fit patients in addition to removal of the tumor from the breast. I explained that this is done to test the very first lymph nodes d raining the breast for presence of cancer. This will be done with radionucleotide injection and possibly with blue dye tracer. If the lymph nodes contain cancer, depending on what surgery was performed and how many lymph nodes are positive, additional surgery and/ or radiation therapy to axilla may be warranted as well. At this time patient does not have signs of invasive disease, hence the sentinel lymph node biopsy will not be pursued at index surgery.Regarding evaluation of contralateral breast, she had a screening mammogram done on 06/04/2021 and this did not show any suspicious lesions in the contralateral breast per radiologist report. I am planning to get MRI of the breast to delineate extent of left breast disease. This will also evaluate the right breast for suspicious lesions.Since patient was diagnosed with breast cancer, she qualifies for genetic testing. I provided the genetic testing counseling -see the note below. At this time, patient declined genetic testing. She will let me know if she changes her mind.I discussed with the patient and her family that Oncotype Dx is used to predict the probability of Hormone (+) Her2(-) INVASIVE cancer coming back. I explained that if the test comes back with a high score, chemotherapy may be considered. At this time, we do not have signs of invasive disease. We will consider this test postop if indicated.I will place referral for Medical Oncology. This appointment can be scheduled after surgery.I explained to the patient that she may need to follow up with radiation oncology if she wants to pursue breast conserving surgery or if lymph nodes or mastectomy margins are positive. I will place this referral. She can schedule appointment with [facility] after surgery.Finally, I informed patient that an appointment moose be scheduled for her preoperatively with her primary care doctor as we will need a surgical clearance, latest labs and imaging (CBC, BMP, CXR,EKG).All questions were answered. Patient and her family agree with the plan Genetic testing Patient participated in our cancer screening program and she was identified as a person who may be eligible for genetic testing due to her diagnosed left breast cancer.Possible outcomes of genetic testing were discussed with patient with emphasis on the fact that the majority of cancers are not related to germline mutations but are rather due to somatic mutations.I have explained that the genetic testing can come back as positive for specific pathological gene mutation, as negative, or as variant of unknown significance (VUS) which means that there is duration in the gene however we do not have enou gh information to determine the significance importance of this ulceration. I explained to the patient that we do not asked on VUS and treat them as negative until they are reclassified as pathologically significant mutation or benign alteration.We have discussed that regardless of test outcome patient cannot have her health insurance denied in the future.Patient is interested in proceeding with genetic testing. We will provide her with the blood kit today. We will update her about the results of genetic testing when the test is completed My patient's relatives who have had breast and/or ovarian cancer are not available for genetic testing because:___They are .___My patient does not have any contact with affected relatives.___The affected relatives refused testing._x_ Pt has a personal history of breast cancer.This patient does not have a known hereditary cancer genetic mutation on either side of the family.This patient does not have known Ashkenazi Christian ancestry on either side of the family.Assessment & Plan:This patient's personal and/or family history of cancer is suggestive of a hereditary cancer syndrome. Patient meets the criteria for genetic testing established by medical society guidelines and I recommended that the patient pursues testing based on these criteria.Today we discussed how genetics may affect cancer susceptibility and the options, alternatives, benefits, limitations and potential outcomes of genetic testing for hereditary cancer syndromes. Patient was also made aware of the limitations of testing an unaffected individual for a cancer predisposition syndrome. The genetic test recommended for patient today is called the Integrated [employer] with [employer]. The Integrated [employer] analyzes 35 genes including BRCA1, BRCA2, MLH1, MSH2, MSH6, and PMS2 to identify germline genetic mutations that cause an increased risk for eight primary cancers including: breast, ovarian, endometrial, colorectal, gastric, pancreatic, prostate, and melanomas. Due to significant clinical overlap in hereditary cancer susceptibility genes, a molecular diagnosis of a hereditary cancer condition is necessary to clarify the cancer risks patient carries and the screening, management, and treatment options most appropriate for patient. Family history of cancer Patient has a family history of breast cancer in her paternal aunt and paternal cousin. She is eligible for genetic testing. Future Test Test Name Order Date Basic Metabolic Profile (BMP) [id number] Referrals Referral Date Details New diagnosed Left breast DC IS, grade 1, ER 100%, TN 100%. Please evaluation and treat as necessary., Candice Arnold SMP New diagnosed Left breast DC IS. Please evaluate and treat as necessary., Lauri Dozier Insurance Providers Payer Name Payer Address Payer Phone Insured Name Patient Relati onship to Insured Coverage Start Date Coverage End Date [facility] [employer] [address] [address] [facility] [id number] [place]OW
--- OUTSIDE RECORDS SUMMARY | 2021-08-28 10:43 | CCD ---
Author Author [facility] Organization 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 [id number] ALLERGIES No Known Allergies ENCOUNTERS from 1970 to 2021-08-09 Encounter Location Date Provider Diagnosis [facility] [address] [place] [address] [place] [address] Jul, Trinity Hoyos IMMUNIZATIONS No Information SOCIAL [...] Information RESULTS No Results REASON FOR VISIT 08/28/21 SURG AUTH MEDICAL (GENERAL) HISTORY Type Description Date Medical [...] Details Provider Name:Trinity Hoyos, 09-09-09 12:45:00 AM, [address] [place] [address], , [place], [address], Provider Name:Trinity Hoyos, 09-09-15 07:30:00 AM, [address] [place] [address], , [place], [address], Insurance Providers Payer Name Payer Address Payer Phone Insured Name Patient Relati onship to Insured Coverage Start Date Coverage End Date [facility] [employer] [address] [address] [facility] [id number] [place]
--- OUTSIDE RECORDS SUMMARY | 2021-08-28 10:43 | CCD ---
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 [id number] ALLERGIES No Known Allergies ENCOUNTERS from 1970 to 2021-08-11 Encounter Location Date Provider Diagnosis [facility] [address] [place] [address] [place] [address] Jul, Trinity Hoyos IMMUNIZATIONS No Information SOCIAL [...] Information RESULTS No Results REASON FOR VISIT PREOP CLEARANCE MEDICAL (GENERAL) HISTORY Type Description Date Medical [...] Details Provider Name:Trinity Hoyos, 09-09-09 12:45:00 AM, [address] [place] [address], , [place], [address], Provider Name:Trinity Hoyos, 09-09-15 07:30:00 AM, [address] [place] [address], , [place], [address], Insurance Providers Payer Name Payer Address Payer Phone Insured Name Patient Relati onship to Insured Coverage Start Date Coverage End Date [facility] [employer] [address] [address] [facility] [id number] [place]S
--- OUTSIDE RECORDS SUMMARY | 2021-08-28 10:43 | CCD | Continuity of Care Document ---
Author Author Emely Ball M.D. 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 07/31/2011 Calcium 600 + D [id number] Tab lets 1 po qd Fabienne Ball [...] Given 08/11/2019 Influenza,Unspecified U-Flu Given 07/20/2018 Influenza,Unspecified 50020 Given 08/14/2017 Influenza Vaccin e Quadrivalent Preser/Antibiotic Free Im Use [id number] Refused 08/05/2012 Fluvirin Virus Vaccine Vital [...] H/L Range Note Complete Blood Count 07/12/2021 [facility] Slasher Operator: [place] [address] [phone] WBC 5.7 x10*3/UL 4.1 - 10.9 RBC [...] 2.0 - 7.8 Basic Metabolic Panel 07/12/2021 [facility] Slasher Operator: [place] [address] [phone] Glucose 78 mg/dL 74 - 99 1 [...] 2 Laboratory test finding 07/12/2021 vivienne Cavazos Slasher Operator: Dr Khadar Hopkins [place] [id number] [phone] Thyroid Stimulating Hormone 1.89 uIU/mL 0.3 6 - 3.74 1 100-125 mg/dL PRE-DIABET ES/FASTING >126 mg/dL DIABETES/FASTING 2 CHRONIC KIDNEY DISEASE STAGI NG PER NKF STAGE I & II GFR >= 60 NORMAL TO MILDLY DECREASED STAGE III GFR 30-59 MODERATELY DECREASED STAGE IV GFR 15-29 SEVERELY DECREASED STAGE V GFR <15 VERY LITTLE GFR LEFT ESRD GFR <15 ON CHICKEN AND [employer]ER Procedures Date Code Description Status 06/29/2021 [id number] Mammogram Completed 06/04/2021 [id number] Mammogram Completed 06/01/2020 [id number] Mammogram Completed 05/20/2019 [id number] Mammogram Completed 11/06/2018 [id number] Colonoscopy Completed 05/28/2018 [id number] Mammogram Completed 05/19/2017 [id number] Mammogram Completed 05/03/2016 [id number] Mammogram Completed 05/02/2015 [id number] Mammogram Completed 04/29/2014 [id number] Mammogram Completed 04/28/2013 [id number] Mammogram Completed 04/27/2012 [id number] Mammogram Completed 02/16/2010 [id number] Mammogram Completed Medical Devices Description No Information Available Encounters Description No Information Available Assessments Date Code Description Provider 07/12/2021 N95.8 Other specified menopausal and p erimenopausal disorders Fabienne Ball M.D. 07/12/2021 R92.2 Inconclusive mammogram Fabienne Ball M.D. 07/12/2021 N30.20 Other chronic cystitis without h ematuria Fabienne Ball M.D. 07/12/2021 R03.0 Elevated blood-press ure reading, without diagnosis of hypertension Fabienne Ball M.D. 07/12/2021 R51.9 Headache, unspecified Fabienne melvin M.D. 07/12/2021 Z86.010 Personal history of colonic poly ps Fabienne Ball M.D. 07/12/2021 Z83.518 Family history of other specifie d eye disorder Fabienne Ball M.D. 07/12/2021 M54.5 Low back pain Fabienne wagner M.D. Plan of Treatment Future Appointment(s):* 07/17/2022 8:00 am - Fabienne Ball M.D. at [facility] 07/12/2021 - Fabienne Ball M.D.* N95.8 Other specified menopausal and perimenopausal disorders * R92.2 Inconclusive mammogram * N30.20 Other chronic cystitis without hematuria [...]
[2021-08-28] MEDS ORDERED: SCOPOLAMINE 1MG TRANSDERMAL PATCH TOP ONE ×2 (12:50→13:05)
[2021-08-28] MEDS ORDERED: LIDOCAINE 2% 100MG/5ML SDV (FOR ANES.) As Ordered ONE (13:19)
[2021-08-28] MEDS ORDERED: fentaNYL 100 MCG/2 ML INJECTION (J3010) As Ordered ONE ×2 (13:19→14:36)
[2021-08-28] MEDS ORDERED: propofoL 200 MG/20 ML VIAL As Ordered ONE (13:19)
[2021-08-28] MEDS ORDERED: ONDANSETRON 4MG/2ML VIAL As Ordered ONE (13:19)
[2021-08-28] MEDS ORDERED: SUCCINYLCHOLINE 100 MG/5 ML SYRINGE (J0330) As Ordered ONE (13:19)
[2021-08-28] MEDS ORDERED: METOCLOPRAMIDE INJ 10MG/2ML VIAL (J2765 PER 1) As Ordered ONE (13:19)
[2021-08-28] MEDS ORDERED: dexameTHASONE 4 MG/ML 1ML VIAL (J1100 PER 1MG) As Ordered ONE (13:19)
[2021-08-28] MEDS ORDERED: ROCURONIUM BROMIDE 50 MG/5 ML VIAL As Ordered ONE (13:19)
[2021-08-28] MEDS ORDERED: MIDAZOLAM INJ 2MG/2ML VIAL (J2250 PER 1MG) As Ordered ONE (13:19)
[2021-08-28 13:25] LABS: BLOOD UREA NITROGEN 11 MG/DL (7-18); CREATININE FOR GFR 0.79 MG/DL (0.55-1.30); GLUCOSE, FASTING 85 MG/DL (70-100)
[2021-08-28 13:26] LABS: CALCIUM LEVEL 9.8 MG/DL (8.5-10.1); CARBON DIOXIDE LEVEL 34 MEQ/L (21-32); CHLORIDE LEVEL 108 MEQ/L (98-107); GLOMERULAR FILTRATION RATE > 60.0 (>51); POTASSIUM SERUM 4.2 MEQ/L (3.5-5.1); SODIUM LEVEL 145 MEQ/L (136-145)
[2021-08-28] MEDS ORDERED: BUPIVACAINE HCL 0.25% 30ML VIAL As Ordered ONE (14:03)
[2021-08-28] MEDS ORDERED: LIDOCAINE 1% SDV 30ML VIAL As Ordered ONE (14:04)
[2021-08-28] MEDS ORDERED: ACETAMINOPHEN 1000MG 100ML IV BTL (OFIRMEV) (J0131 PER 10MG) As Ordered ONE (14:21)
[2021-08-28] MEDS ORDERED: SUGAMMADEX SODIUM 500 MG/5 ML VIAL (BRIDION) As Ordered ONE (14:35)
[2021-08-28] MEDS ORDERED: ePHEDrine SULFATE 25 MG/5 ML(5MG/ML) SYRINGE As Ordered ONE (14:37)
[2021-08-28] MEDS ORDERED: ULTR50TA8 PO (16:52)
[2021-08-28] MEDS ORDERED: oxyCODONE 5MG TAB PO PRN (17:10)
[2021-08-28] MEDS ORDERED: LR 1,000 ML IV SCH (17:10)
[2021-08-28] MEDS ORDERED: fentaNYL 100 MCG/2 ML INJECTION (J3010) IV PRN (17:10)
[2021-08-28] MEDS ORDERED: ONDANSETRON 4MG/2ML VIAL IV PRN (17:10)
[2021-08-28 18:25] VITALS: BP 132/65
--- NOTE | 2021-09-01 12:07 | ROOPDOC ---
[facility] Report Of Operation Report of Operation DATE OF PROCEDURE: 08/28/21 PREPROCEDURE DIAGNOSES: Left breast cancer ( DCIS) POSTPROCEDURE DIAGNOSES: Left breast cancer ( DCIS) PROCEDURE PERFORMED: Left breast lumpectomy with intraop wire placement SURGEON: Dr Renata Almonte ANESTHESIA: general ESTIMATED BLOOD LOSS: Approximately 25 mL. COMPLICATIONS: none FINDINGS: Wire and the clip removed, additional posterior, superior and lateral margins excised PROCEDURE NOTE: INDICATIONS: Ms. Emely Glasgow is a 51-year-old woman who was found to have suspicious calcifications on screening left mammogram. Stereotactic biopsy of the calcifications was done and pathology came back as DCIS, ER +, MD +, grade 1. She opted for breast conservative surgery. She was medically cleared for surgery by her primary care doctor. Risks and possible complications of surgical procedure including bleeding, infection and injury to surrounding structures were explained to the patient and she wished to proceed. Consent was signed. My initials were placed on the operative site. Subcutaneous injection of 5000 units of heparin was done in Preop. DETAILS: Patient was taken to the operating room and placed on the operating room table. A sign in was called stating patients name, date of and the procedure to be done. Preoperative antibiotics were infused. Smooth induction of general anesthesia was done. Patients hands were extended on arm rests. Care was taken not to over extend the arms. Pillow was placed under the knees and a foam was placed under the heels. Sequential compression devices were placed and assured to function correctly. Procedure was started with left breast intraop wire localization. Appropriate time out was done and patients name, date of , and the procedure to be done were confirmed. Left breast was cleaned by me. Intraoperative ultrasound was used to confirm location of the Hydromark clip. Location of the clip was marked on the skin as well. 21 G Kopans Breast Lesion Localization Needle was used to place 25 cm wire through the clip. The end of the wire was passed a centimeter deep. The images were captured confirming adequate placement of the localizing wire. [place] Machine Operator assisted with the wire placement. Next, patients left breast and axilla were prepped and draped in the usual fashion. Care was taken not to displace the wire. Appropriate time out was done again prior second part of the procedure. Patients name, date of , and the procedure to be done were confirmed. Local anesthetic using 1% lidocaine and 0.25 % Marcaine 50/50 mix was injected at the site of planned left periareolar incision. The incision was made with the scalpel. Subcutaneous skin flaps were raised and the guide wire was carefully pulled into the wound. Dissection was carries along the wire until the previously marked on the skin area of target lesion location was encountered. At this point, wider excision of the tissue surrounding the wire was done. The Hydromark clip was identified in the tissue with intraoperative hockey stick ultrasound probe. The end of the wire was identified with palpation. The lumpectomy specimen was carefully removed from the breast keeping its proper orientation and moved to the back table where margins were marked with the surgical inking kit following the standard colors recommendations. Specimen was then placed on the grid and placed in [facility]imen [facility] System. The image revealed the wire and the Hydromark in the specimen. There was single calcification present at the anterior margin. The specimen was labeled with patients name and left lumpectomy and sent to pathology. The specimen measured 4x3 cm. Next, margins of the specimen were evaluated with intraop radiography. Posterior, superior, and lateral margins were close to the clip and decision was made to take additional margins at those locations. Single calcification was noted at the anterior margin and significant distance away from the previous biopsy site and the clip. This margin was not excised as this calcification is likely not related with the cancer site. All new margins, defined as margin f arthest away from lumpectomy cavity, were marked with black ink. Each margin was sent as a separate specimen with appropriate labeling. Wound was thoroughly irrigated. Adequate hemostasis was assured. Additional local anesthetic was injected into surrounding tissues. Five clips were placed to wilver the cavity. space was approximated with 2-0 Vicryl. The dermis was closed with 3-0 Vicryl and skin was closed with 4-0 Monocryl. Surgical glue was placed over the incision. Patient emerged from the anesthesia without any problems. Fluffs were placed over the operative site and patients chest was wrapped snuggly in the NIDA wrap. Sponge and instrument counts were done and were correct. Patient tolerated procedure well and was taken to recovery unit in stable condition. RENATA ALMONTE DO Sep 01, 2021 12:07
== END 2021-08-28 18:45 | disposition home or self-care (01) ==
LOC: M SDC 10:39
PROVIDERS: ATTEND Surgery
DX: C50.912 Malignant neoplasm of unspecified site of left female breast (principal)
CPT/HCPCS: 19125; 36415; 76942; 80048; 81025; 86850; 86900; 86901; 88305; 88307; J0131; J0690; J1100; J1644; J2250; J2405; J2765; J3010

== ENCOUNTER → 2021-09-18 | Outpatient (CLI) | payer BC ==
[~2021-09-18] MED LIST changes: +ANAS1TAB2 PO; -HEPARIN SOD (PORCINE) 5000UNITS/ML 1ML VIAL/SYRINGE SQ ONE; -LIDOCAINE 1% MDV 20ML VIAL SQ PRN; -LR 1,000 ML IV ONE; +ULTR50TA8 PO; -ceFAZolin SOD 2 GM in IV 1 EA IV ONE
== END ==
LOC: M ONCR 10:34
PROVIDERS: ATTEND General Practice
DX: C50.412 Malignant neoplasm of upper-outer quadrant of left female breast (principal)

== ENCOUNTER → 2021-09-26 | Outpatient (CLI) | payer BC ==
--- NOTE | 2021-09-26 11:52 | DEXAMM ---
INDICATION: BREAST CA TO STARTON AI/POSSIBLE OSTEOPENIA. COMPARISON: None. TECHNIQUE: Bone density was measured using dual-energy x-ray absorptiometry (DEXA). FINDINGS: AP SPINE L1-L4 BMD 0.945 g/cm2 Young Adult T-Score -2.0 Age Matched Z-Score -1.3. LT FEMUR, TOTAL BMD 0.884 g/cm2 Young Adult T-Score -1.0 Age Matched Z-Score -0.4. LT NECK BMD 0.781 g/cm2 Young Adult T-Score -1.8 Age Matched Z-Score -0.9. RT FEMUR, TOTAL BMD 0.878 g/cm2 Young Adult T-Score -1.0 Age Matched Z-Score -0.4. RT NECK BMD 0.741 g/cm2 Young Adult T-Score -2.1 Age Matched Z-Score -1.2. IMPRESSION: There is low bone density of the spine. There is low bone density of the left hip. There is low bone density of the right hip. FOLLOW-UP: Recommendation for the next bone density exam: 2 years. <Electronically signed by Michael West > 09/26/21 1143
== END ==
LOC: M WHC 10:09
PROVIDERS: ATTEND Internal Medicine Medical Oncology
DX: C50.919 Malignant neoplasm of unspecified site of unspecified female breast (principal); Z79.83 Long term (current) use of bisphosphonates

== ENCOUNTER 2021-10-18 13:53 | Outpatient (RCR) | payer BC | END 2021-10-19 | LOC: M ONCR 13:53 | PROVIDERS: ATTEND General Practice | DX: D05.12 Intraductal carcinoma in situ of left breast (principal) ==

== ENCOUNTER 2021-10-31 13:51 | Outpatient (RCR) | payer BC | END 2021-11-19 | LOC: M ONCR 13:51 | PROVIDERS: ATTEND General Practice | DX: D05.12 Intraductal carcinoma in situ of left breast (principal) ==

== ENCOUNTER → 2021-12-14 | Outpatient (CLI) | payer BC ==
[~2021-12-14] MED LIST changes: +ALEN35TA56 PO
[2021-12-14 09:58] LABS: ALBUMIN 4.1 GM/DL (3.2-5.2); ALT/SGPT 37 U/L (12-78); BILIRUBIN,TOTAL 0.5 MG/DL (0.2-1.0); BLOOD UREA NITROGEN 12 MG/DL (7-18); CALCIUM LEVEL 9.6 MG/DL (8.5-10.1); CARBON DIOXIDE LEVEL 34 MEQ/L (21-32); CHLORIDE LEVEL 106 MEQ/L (98-107); GLOMERULAR FILTRATION RATE > 60.0 (>51); GLUCOSE, FASTING 81 MG/DL (70-100); POTASSIUM SERUM 4.3 MEQ/L (3.5-5.1); SODIUM LEVEL 143 MEQ/L (136-145)
[2021-12-14 10:17] LABS: BASO % 0.7 % (0.0-1.0); EOS # 0.1 10^3/uL (0.0-0.5); EOS % 2.7 % (0.0-3.0); HEMOGLOBIN 12.6 g/dl (12.0-15.5); LYMPH # 1.5 10^3/uL (1.5-5.0); LYMPH % 34.2 % (24.0-44.0); MEAN CORPUSCULAR HEMOGLOBIN 29.9 pg (27.0-33.0); MEAN CORPUSCULAR HGB CONC 33.2 g/dl (32.0-36.5); MEAN CORPUSCULAR VOLUME 90.3 fl (80.0-96.0); MONO # 0.4 10^3/uL (0.0-0.8); MONO % 8.6 % (2.0-8.0); NEUTROPHILS # 2.4 10^3/uL (1.5-8.5); NEUTROPHILS % 53.8 % (36.0-66.0); PLATELET COUNT, AUTOMATED 186 10^3/uL (150-450); RED BLOOD COUNT 4.21 10^6/uL (4.00-5.40); WHITE BLOOD COUNT 4.4 10^3/uL (4.0-10.0)
== END ==
LOC: M LAB 08:43
PROVIDERS: ATTEND Internal Medicine Medical Oncology
DX: D05.12 Intraductal carcinoma in situ of left breast (principal)

== ENCOUNTER → 2022-01-02 | Outpatient (CLI) | payer BC | LOC: M LABSMTC 09:29 | PROVIDERS: ATTEND Anesthesiology | DX: Z01.812 Encounter for preprocedural laboratory examination (principal); Z20.822 Contact with and (suspected) exposure to COVID-19 ==

== ENCOUNTER 2022-01-07 10:52 | Day surgery (SDC) | payer BC ==
[~2022-01-07] VITALS: Ht 167.6 cm; Wt 65.2 kg
[~2022-01-07 10:52] MED LIST changes: +NS 1,000 ML IV ONE
[2022-01-07] MEDS ORDERED: LIDOCAINE 2% 100MG/5ML SDV (FOR ANES.) As Ordered ONE (11:20)
[2022-01-07] MEDS ORDERED: propofoL 200 MG/20 ML VIAL As Ordered ONE (11:20)
[2022-01-07 13:20] VITALS: BP 150/67
== END 2022-01-07 13:35 | disposition home or self-care (01) ==
LOC: M OPP 10:52
PROVIDERS: ATTEND Internal Medicine Gastroenterology
DX: Z12.11 Encounter for screening for malignant neoplasm of colon (principal); Z86.010 Personal history of colon polyps; Z80.0 Family history of malignant neoplasm of digestive organs; D12.2 Benign neoplasm of ascending colon; R01.1 Cardiac murmur, unspecified; Z85.3 Personal history of malignant neoplasm of breast; Z92.3 Personal history of irradiation; Z92.21 Personal history of antineoplastic chemotherapy; Z91.09 Other allergy status, other than to drugs and biological substances; Z79.899 Other long term (current) drug therapy; Z80.3 Family history of malignant neoplasm of breast; Z80.52 Family history of malignant neoplasm of bladder

== ENCOUNTER → 2022-05-01 | Outpatient (CLI) | payer BC ==
[~2022-05-01] MED LIST changes: -NS 1,000 ML IV ONE
== END ==
LOC: M ONCR 08:34
PROVIDERS: ATTEND General Practice
DX: D05.12 Intraductal carcinoma in situ of left breast (principal); R23.2 Flushing; Z79.811 Long term (current) use of aromatase inhibitors; Z91.048 Other nonmedicinal substance allergy status

== ENCOUNTER → 2022-06-06 | Outpatient (CLI) | payer BC | LOC: M WHC 07:50 | PROVIDERS: ATTEND Surgery | DX: D05.12 Intraductal carcinoma in situ of left breast (principal); Z98.890 Other specified postprocedural states | CPT/HCPCS: 77066; G0279 ==

== ENCOUNTER → 2023-05-01 | Outpatient (CLI) | payer BC | LOC: M ONCR 08:31 | PROVIDERS: ATTEND General Practice | DX: D05.12 Intraductal carcinoma in situ of left breast (principal); Z71.2 Person consulting for explanation of examination or test findings; Z79.811 Long term (current) use of aromatase inhibitors; Z86.16 Personal history of COVID-19; Z91.048 Other nonmedicinal substance allergy status; Z92.3 Personal history of irradiation; Z98.890 Other specified postprocedural states ==

== ENCOUNTER → 2023-06-09 | Outpatient (CLI) | payer BC | LOC: M WHC 13:06 | PROVIDERS: ATTEND Nurse Practitioner Women's Health | DX: D05.12 Intraductal carcinoma in situ of left breast (principal) | CPT/HCPCS: 77066; G0279 ==

== ENCOUNTER → 2024-04-30 | Outpatient (CLI) | payer BC ==
[~2024-04-30] MED LIST changes: -CRAN400C PO; +CRANBERRY400 MG PO
== END ==
LOC: M ONCR 08:30
PROVIDERS: ATTEND General Practice
DX: Z08 Encounter for follow-up examination after completed treatment for malignant neoplasm (principal); Z85.3 Personal history of malignant neoplasm of breast; Z79.811 Long term (current) use of aromatase inhibitors; Z79.899 Other long term (current) drug therapy; Z91.048 Other nonmedicinal substance allergy status; Z92.3 Personal history of irradiation

== ENCOUNTER → 2024-06-09 | Outpatient (CLI) | payer BC | LOC: M WHC 09:55 | PROVIDERS: ATTEND Nurse Practitioner Women's Health | DX: D05.12 Intraductal carcinoma in situ of left breast (principal) | CPT/HCPCS: 77066; G0279 ==

== ENCOUNTER → 2025-01-21 | Outpatient (CLI) | payer BC | LOC: M CARPUL 15:58 | PROVIDERS: ATTEND Internal Medicine | DX: R94.31 Abnormal electrocardiogram [ECG] [EKG] (principal) ==

== ENCOUNTER → 2025-07-19 | Outpatient (CLI) | payer BC | LOC: M WHC 13:34 | PROVIDERS: ATTEND Internal Medicine | DX: D05.12 Intraductal carcinoma in situ of left breast (principal); R92.333 Mammographic heterogeneous density, bilateral breasts | CPT/HCPCS: 77066; G0279 ==

== ENCOUNTER 2025-07-28 07:35 | Day surgery (SDC) | payer BC ==
[~2025-07-28] VITALS: Ht 165.1 cm; Wt 59.6 kg
[2025-07-28] MEDS ORDERED: LIDOCAINE 2% 100 MG/5 ML SDV (FOR ANES.) As Ordered ONE (08:18)
[2025-07-28 09:20] VITALS: TEMP 97.6
[2025-07-28 09:41] VITALS: BP 157/71; O2SAT 99
== END 2025-07-28 09:51 | disposition home or self-care (01) ==
LOC: M OPP 07:35
PROVIDERS: ATTEND Internal Medicine Gastroenterology
DX: D12.0 Benign neoplasm of cecum (principal); K57.30 Diverticulosis of large intestine without perforation or abscess without bleeding; K64.8 Other hemorrhoids; Z86.0101 Personal history of adenomatous and serrated colon polyps; Z80.0 Family history of malignant neoplasm of digestive organs; Z91.048 Other nonmedicinal substance allergy status; Z79.899 Other long term (current) drug therapy

== ENCOUNTER → 2025-09-30 | Outpatient (CLI) | payer BC | LOC: M WHC 08:10 | PROVIDERS: ATTEND Internal Medicine Medical Oncology | DX: M85.89 Other specified disorders of bone density and structure, multiple sites (principal); Z85.3 Personal history of malignant neoplasm of breast ==